=== PATIENT | female | born 1955 | race Caucasian/White ===

== ENCOUNTER 2017-02-21 20:24 | Observation (INO) | payer OTHER ==
[~2017-02-21] VITALS: Ht 165.1 cm; Wt 65.9 kg
[~2017-02-21 20:24] MED LIST: ASPI325T4 PO; ATOR40TA PO; CIPR500T PO; DIAZEPAM10 MG PO; LOSA100T6 PO; METR500T4 PO; POLY17PO5 PO; PROP225T PO; TRAM50TA PO; [UNRECOGNIZED DRUG - OTHER] PO
[2017-02-21 20:55] LABS: BASO % 1 % (0-3); EOS % 0 % (0-3); HEMATOCRIT 42.3 % (36.0-47.0); HEMOGLOBIN 14.5 g/dL (12.0-15.5); LYMPH # 1.7 x10^3/uL (1.0-4.8); LYMPH % 30 % (24-48); MEAN CORPUSCULAR HEMOGLOBIN 32 pg (25-35); MEAN CORPUSCULAR HGB CONC 34 g/dL (31-37); MEAN CORPUSCULAR VOLUME 94 fL (79-100); MONO % 9 % (0-9); NEUT % 61 % (31-73); PLATELET COUNT 228 x10^3/uL (140-400); RED BLOOD COUNT 4.52 x10^6/uL (3.50-5.40); RED CELL DISTRIBUTION WIDTH 14.4 % (11.5-14.5); WHITE BLOOD COUNT 5.7 x10^3/uL (4.0-11.0)
[2017-02-21] MEDS: NITROGLYCERIN SUBLINGUAL 0.4 MG BOTTLE OF 25. SL PRN ×3 (21:05→21:25)
[2017-02-21 21:12] LABS: CALCIUM 10.5 mg/dL (8.5-10.1); CREATININE 0.9 mg/dL (0.6-1.0); GFR 63.4; POTASSIUM 3.9 mmol/L (3.5-5.1)
[2017-02-21 21:18] LABS: ALBUMIN 4.1 g/dL (3.4-5.0); DIRECT BILIRUBIN 0.2 mg/dL (0.0-0.2)
[2017-02-21] MEDS: FENTANYL PF 100 MCG/2 ML VIAL. IV PRN ×3 (21:35→23:26)
[2017-02-21] MEDS ORDERED: diphenhydrAMINE HCL 25 MG CAPSULE PO ONE (22:00)
--- NOTE | 2017-02-21 22:43 | ACF ---
Admission Forms Criteria CARDIOLOGY GRG Clinical Indications for Admission to Inpatient Care ( Place 'X' for any and all applicable criteria): Hospital admission is needed for appropriate care of the patient because of ANY ONE of the following (1): [ ] I. Hemodynamic instability as indicated by ALL of the following (1)(2)(3) (4)(5) [ ]a) Vital signs or other findings not as expected for chronic patient condition or baseline [ ]b) Instability indicated by ANY ONE of the following: [ ]i) Hypotension [ ]ii) Symptomatic Tachycardia unresponsive to treatment ( e.g., analgesia, fluids, sedation as indicated) [ ]iii) Inadequate perfusion indicated by ANY ONE of the following: [ ] 1) Lactic acidosis (> 2 mmol/L) [ ] 2) New abnormal capillary refill (> 3 seconds) [ ] 3) Reduced urine output [ ] 4) New altered mental status [ ]iv) Orthostatic vital sign changes unresponsive to treatment (e.g., fluids) [ ]v) IV inotropic or vasopressor medication required to maintain adequate blood pressure or perfusion [ ] II. Severe heart failure as indicated by ANY ONE of the following(17)(18) [ ]a) Respiratory distress [ ]b) Hypotension [ ]c) Anasarca (refractory to outpatient therapy) [ ]d) Cardiac arrhythmias of immediate concern [ ]e) Myocardial ischemia [ ] III. Cardiac arrhythmias or findings of immediate concern indicated by ANY ONE of the following (19)(20): [ ] a) Heart rhythms that are inherently dangerous or unstable indicated by ANY ONE of the following (21)(22)(23): [ ] i) Resuscitated ventricular fibrillation or cardiac arrest [ ] ii) Ventricular escape rhythm [ ] iii) Sustained ventricular tachycardia (30 seconds or more of ventricular rhythm at greater than 100 beats per minute) [ ] iv) Nonsustained ventricular tachycardia and ANY ONE of the following: [ ] 1) Suspected cardiac ischemia as cause or consequence of ventricular tachycardia [ ] 2) In setting of acute myocarditis [ ] b) Unstable cardiac conduction defects indicated by ANY ONE of the following(23)(24)(25) [ ] i) Type II second-degree atrioventricular block [ ]ii) Third-degree atrioventricular block [ ]iii) New-onset left bundle branch block with suspected myocardial ischemia [ ]c) Any heart rhythm and ANY ONE of the following (21)(22)(26)(27) (28) [ ] i) Continuous long-term ECG monitoring needed (e.g., initiation of drug requiring monitoring for more than 24 hours) [ ] ii) Patient has automatic implanted cardioverter defibrillator that is repeatedly firing, malfunctioning, or in need of immediate adjustment of settings beyond the scope of ambulatory or observation care [ ]d) Heart rhythms of concern due to ANY ONE of the following: [ ] i) Hypotension [ ] ii) Respiratory distress [ ] iii) Association with other significant symptoms (e.g., bradycardia with syncope or ongoing dizziness, supraventricular tachycardia with chest pain (14)(15)(17) [ ] IV. Monitoring for cardiac contusion beyond the scope of observation care needed [A](30)(31)(32) [ ] V. Surgical or device complication (e.g., valve replacement complication , pacemaker dysfunction) (35)(41)(44)(45)(46) [ ] . Inpatient palliative care needed. [B](49) Also use Inpatient Palliative Care Criteria [ ] VII. Nonbacterial thrombotic (marantic) endocarditis (36)(43)(47)(48) [X] VIII. Cardiology condition, symptom, or finding for which emergency and observation care has failed or are not considered appropriate. [ ] IX. Acute valvular disease requiring inpatient as indicated by ANY ONE of the following (41) [ ]a) Acute valvular regurgitation (42) [ ]b) Noninfectious valvulitis (43) [ ]c) Obstructive valve thrombosis [ ]d) Paravalvular leak [ ]e) Other significant valvular disorder remaining after emergency or observation level of care (as appropriate) [ ]X. Pericardial disease requiring inpatient treatment as indicated by ANY ONE of the following (33)(34)(35)(36)(37) [ ]a) Suspected tamponade (38)(39)(40) [ ]b) Hemopericardium [ ]c) Other significant pericardial disorder remaining after emergency or observation level of care (as appropriate) [ ] XI. Cardiac ischemia beyond scope of emergency and observation care. [ ] XII. Hypertension requiring inpatient treatment as indicated by ANY ONE of the following (6)(7)(8) [ ]a) SBP greater than 220 mm Hg or DBP greater than 120 mmHg despite treatment [ ]b) SBP greater than 140 mm Hg or DBP greater than 100 mm Hg with evidence of acute end organ damage as indicated by ANY ONE of the following [ ] i) Encephalopathy [ ] ii) Acute renal failure as indicated by new onset of ANY ONE of the following (9)(10)(11)(12)(13) [ ]1) 3-fold rise in serum creatinine from baseline [ ]2) Serum creatinine greater than 4 mg/dL ( 354 micromoles/L) with acute rise greater than 0.5 mg/dL (44.2 micromoles/L) [ ]3) Reduction of more than 75% in estimated glomerular filtration rate from baseline [ ]4) Estimated glomerular filtration rate less than 35 mL/min/1.73m2 (0.59 mL/sec/1.73m2) in child up to 18 years of age [ ]5) Cessation of urine output indicated by ALL of the following [ ]A. Adequate volume status [ ]B. Inadequate urine output as indicated by ANY ONE of the following [ ]a. Urine output less than 0.3 mL/kg/hr for 24 hours [ ]b. Anuria (urine output less than 0.1 mL/kg/hr) for 12 hours [ ] iii) Aortic dissection [ ] iv) Myocardial Ischemia [ ] v) Left ventricular heart failure [ ]vi) Retinal Hemorrhage [ ]vii) Other significant finding [ ]c) Hypertension in child requiring inpatient treatment as indicated by ALL of the following(14)(15)(16) [ ] i) Outpatient treatment not effective, not available, or not appropriate [ ]ii) SBP or DBP greater than 95th percentile for age [ ]iii) Evidence of acute end organ damage as indicated by ANY ONE of the following [ ]1) Altered mental status [ ]2) Acute renal failure as indicated by new onset of ANY ONE of the following(9)(10)(11)(12)(13) [ ]A. 3-fold rise in serum creatinine from baseline [ ]B. Serum creatinine greater than 4 mg/dL (354 micromoles/L) with acute rise greater than 0.5 mg/dL (44.2 micromoles/L) [ ]C. Reduction of more than 75% in estimated glomerular filtration rate from baseline [ ]D. Estimated glomerular filtration rate less than 35 mL/min/1.73m2 (0.59 mL/sec/1.73m2) in child up to 18 years of age [ ]E. Cessation of urine output indicated by ALL of the following [ ]a. Adequate volume status [ ]b. Inadequate urine output as indicated by ANY ONE of the following [ ]i) Urine output less than 0.3 mL/kg/hr for 24 hours [ ]ii) Anuria ( urine output less than 0.1 mL/kg/hr) for 12 hours [ ]3) Severe headache [ ]4) Visual disturbance [ ]5) Retinal hemorrhage [ ]6) Other significant finding [ ]XIII. Complications of transplanted heart indicated by ANY ONE of the following(61): [ ]a) Acute graft rejection requiring inpatient management (eg, intravenous immunosuppression)(62)(63) [ ]b) Acute graft heart failure indicated by ANY ONE of the following(64): [ ]i) Hemodynamic instability [ ]ii) Cardiac arrhythmias of immediate concern [ ]iii) Pulmonary edema that is very severe (eg, mechanical ventilation needed, imminent or likely, need for 100% oxygen to keep oxygen saturation above 90%) [ ]iv) Pulmonary edema that is persistent as indicated by ALL of the following: [ ]1) New need for oxygen therapy to keep oxygen saturation above 90% (or increased FiO2 need from baseline) [ ]2) Has not improved sufficiently with emergency department or observation care IV diuretics or other heart failure treatments[E] [ ]v) Altered mental status that is severe or persistent [ ]vi) Increased creatinine (new on laboratory test) with reduction of more than 50% in estimated glomerular filtration rate from baseline [ ]vii) Progressively (ongoing) rising creatinine (known from past laboratory test) with reduction of more than 25% in estimated glomerular filtration rate from baseline [ ]viii) Acute renal failure [ ]ix) Acute peripheral ischemia (eg, examination shows pulseless, cool, mottled, or cyanotic extremity) [ ]x) Pulmonary artery catheter monitoring needed [ ]xi) Other sign or symptom of heart failure requiring inpatient treatment (ie, too severe or not responsive to outpatient and observation care treatment) [ ]c) Infection requiring inpatient management (eg, Hemodynamic instability, need for intravenous antimicrobial treatment)(66)(67)(68)(69)(70) [ ]d) Cardiac allograft vasculopathy requiring inpatient management ( eg evidence of cardiac ischemia)(71) [ ]e) Other complication of transplanted heart (eg, stroke, severe pulmonary hypertension, severe valvular dysfunction) requiring inpatient management(72) The original [facility] content created by [facility] has been revised. The portions of the content which have been revised are identified through the use of italic text or in bold, and [facility] has neither reviewed nor approved the modified material. All other unmodified content is copyright [facility]. Please see references footnoted in the original [facility] edition 2016 Admission Criteria Met?: Yes JIM MOHAN. Feb 21, 2017 22:43
[2017-02-21] MEDS ORDERED: ONDANSETRON PF 4 MG/2 ML VIAL. IV PRN (23:00)
[2017-02-21 23:30] VITALS: BP 135/76
[2017-02-22] MEDS: PROPAFENONE SR 225 MG CAP.ER.12H. PO SCH ×3 (00:10→13:11)
[2017-02-22] MEDS: DIAZEPAM 5 MG TABLET PO PRN ×2 (00:10→13:12)
[2017-02-22] MEDS: FENTANYL PF 100 MCG/2 ML VIAL. IV PRN ×3 (01:13→09:44)
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
[2017-02-22 03:20] VITALS: BP 140/78
[2017-02-22] MEDS ORDERED: LIDOCAINE 1% PF 2 ML VIAL. ONE (04:00)
[2017-02-22] MEDS ORDERED: LIDOCAINE 1% PF 2 ML VIAL. INJ ONE (04:30)
[2017-02-22 04:40] LABS: BASO % 0 % (0-3); EOS % 0 % (0-3); HEMATOCRIT 37.5 % (36.0-47.0); HEMOGLOBIN 12.7 g/dL (12.0-15.5); LYMPH # 2.6 x10^3/uL (1.0-4.8); LYMPH % 37 % (24-48); MEAN CORPUSCULAR HEMOGLOBIN 32 pg (25-35); MEAN CORPUSCULAR HGB CONC 34 g/dL (31-37); MEAN CORPUSCULAR VOLUME 93 fL (79-100); MONO % 8 % (0-9); NEUT % 55 % (31-73); PLATELET COUNT 192 x10^3/uL (140-400); RED BLOOD COUNT 4.01 x10^6/uL (3.50-5.40); RED CELL DISTRIBUTION WIDTH 14.1 % (11.5-14.5); WHITE BLOOD COUNT 6.9 x10^3/uL (4.0-11.0)
[2017-02-22 04:50] LABS: CALCIUM 9.4 mg/dL (8.5-10.1); CREATININE 0.9 mg/dL (0.6-1.0); GFR 63.4; POTASSIUM 4.1 mmol/L (3.5-5.1)
--- NOTE | 2017-02-22 06:34 | EKG ---
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
[2017-02-22 07:00] VITALS: BP 126/60
--- NOTE | 2017-02-22 07:21 | RAD ---
Exam: AP portable chest. History: Chest pain. Symptoms began today. Comparison: 06/22/2016. Findings: The heart and mediastinal structures are within normal limits for size. Lungs are without infiltrate. No pneumothorax or pleural effusion is appreciated. Pacemaker by left subclavian approach is unchanged. Aortic atherosclerosis is seen. Impression: 1. No acute cardiopulmonary process.
[2017-02-22] MEDS ORDERED: PROPAFENONE HCL 225 MG PO SCH (09:00)
[2017-02-22 11:00] VITALS: BP 134/70
[2017-02-22] MEDS ORDERED: REGADENOSON 0.4 MG/5 ML DISP.SYRIN. IV ONE (11:00)
[2017-02-22] MEDS ORDERED: TRAMADOL 50 MG TABLET. PO PRN ×2 (11:15)
[2017-02-22] MEDS ORDERED: POLYETHYLENE GLYCOL 3350 17 GM PACKET. PO PRN (11:15)
[2017-02-22] MEDS ORDERED: LOSARTAN POTASSIUM 50 MG TABLET. PO SCH (12:00)
[2017-02-22] MEDS ORDERED: PANTOPRAZOLE 40 MG TABLET.DR. PO SCH (12:00)
--- NOTE | 2017-02-22 12:24 | HP ---
ADMIT DATE: 02/22/2017 CHIEF COMPLAINT: Back and chest pain. HISTORY OF PRESENT ILLNESS AND HOSPITAL COURSE: This patient is a 62-year-old female who comes in complaining of multiple pain complaints, initially started in her left back, between her shoulder blades, radiating towards her chest. She also has right lower quadrant abdominal pain. She states that pain has been going on for 3 weeks, off and on. The patient's initial troponins were negative. The patient's EKG shows normal sinus rhythm without acute changes. Due to severity of symptoms, she was admitted for Cardiology evaluation and rule out protocol. PAST MEDICAL HISTORY: Significant for: 1. Hypertension. 2. High cholesterol. 3. Reflux disease. 4. Chronic back pain. 5. History of diverticulitis. 6. Chronic anxiety. 7. History of breast cancer, in remission since 1997. 8. Posttraumatic stress disorder. 9. Lumbar compression fracture. PAST SURGICAL HISTORY: Significant for: 1. Cholecystectomy. 2. Bilateral mastectomy with reconstruction. 3. Skin grafting of . 4. Left lower extremity fracture repair. 5. Heart catheterization. 6. Total abdominal hysterectomy with bilateral oophorectomy. 7. Kyphoplasty. 8. [place] dual chamber pacemaker in place since 2010. FAMILY HISTORY: Mother is with hypertension, heart disease as well as diabetes. Father is , and several family members with heart disease noted. SOCIAL HISTORY: The patient continues to smoke, approximately a half to a full pack per day. She does not use alcohol. She is on disability. ALLERGIES: The patient exhibits allergies to MORPHINE, DEMEROL, CODEINE as well as HYDROCODONE. REVIEW OF SYSTEMS: The patient has been having intermittent abdominal pain, but denies any weight loss, nausea, vomiting, diarrhea, dysuria, night sweats. The patient denies any shortness of breath or diaphoresis. PHYSICAL EXAMINATION: GENERAL: This is a well-nourished, well-developed female in no apparent distress. On my exam, she is alert and oriented x 3. HEENT: Benign. NECK: Supple, without JVD or bruit. CARDIAC: Regular rate and rhythm. LUNGS: Clear. ABDOMEN: Soft. She does have some mild tenderness in the right lower quadrant, but has no rebound, no guarding and positive bowel sounds are noted. EXTREMITIES: 2+ pulses without edema. ASSESSMENT: Atypical chest pain with strong family history of heart disease with risk factors of high cholesterol, hypertension, and tobacco abuse. PLAN: To proceed with stress testing and Cardiology consultation and discharge to home if negative. To follow up with Dr. Phan for continued care. TOMMY DE LEÓN MD DR: AKOSUA/vidal JOB#: [id number] / [id number]
[2017-02-22 15:00] VITALS: BP 123/63
--- NOTE | 2017-02-22 15:02 | PDOC2 ---
CONSULT Date of Consult Date of Consult DATE: 02/22/17 TIME: 14:53 Reason for Consult Reason for Consult: Chest pain; pacemaker present Referring Physician Referring Physician: Dr. Lehman Identification/Chief Complaint Chief Complaint Chest pain Source Source: Patient History of Present Illness Reason for Visit: Ms. Parks is a 62 year old female with PMHx of breast cancer, sick sinus syndrome s/p pacemaker placement presented to the ED yesterday evening with thoracic back pain and chest pain. Pt reported that she was taking a nap when the pain in her back woke her up. The pain radiates from her back to her chest. Pt reported SOB/N/weakness in her legs. Pt denies diaphoresis/cough/fever/chills /vomiting/diarrhea/abdominal pain. Pt reported taking tyelenol at home but had no relief. Past Medical History Cardiovascular: CAD, HTN, Hyperlipidemia Pulmonary: COPD GI: Diverticulosis, GERD Musculoskeletal: low back pain (chronic) Past Surgical History Past Surgical History: Pacemaker, Appendectomy, Cholecystectomy, Mastectomy, Hysterectomy Family History Family History: Depression Current Problem List Problem List Problems Medical Problems: (1) Back pain Status: Acute (2) Chest pain Status: Acute Current Medications Current Medications Current Medications Nitroglycerin (Nitrostat) 0.4 mg PRN Q5MIN PRN SL CP RATING > 1/10 Last administered on 02/21/17 21:25; Start 02/21/17 at 20:45; Stop 02/22/17 at 20:44 Fentanyl Citrate (Fentanyl 2ml Vial) 25 mcg PRN Q15MIN PRN IV PAIN GREATER THAN 3/10 Last administered on 02/21/17 23:26; Start 02/21/17 at 21:30; Stop at 21:29 Diphenhydramine HCl (Benadryl) 25 mg 1X ONCE PO Last administered on 21:34; Start 02/21/17 at 22:00; Stop 02/21/17 at 22:01; Status DC Ondansetron HCl (Zofran) 4 mg PRN Q8HRS PRN IV NAUSEA/VOMITING; Start 02/21/17 at 23:00; Stop 02/22/17 at 22:59 Fentanyl Citrate (Fentanyl 2ml Vial) 50 mcg PRN Q2HR PRN IV SEVERE PAIN Last administered on 02/22/17 09:44; Start 02/21/17 at 23:00; Stop 02/22/17 at 22:59 Diazepam (Valium) 10 mg PRN TID PRN PO ANXIETY Last administered on 02/22/17 13:12; Start 02/21/17 at 23:45 Non-Formulary Medication 225 mg BID PO ; Start 02/22/17 at 09:00; Stop 02/22/17 at 09:00; Status DC Propafenone HCl (Rythmol Sr) 225 mg Q12HR PO Last administered on 02/22/17 13: 11; Start 02/22/17 at 00:15 Lidocaine HCl (Xylocaine-Mpf 1% Vial) 2 ml 1X ONCE INJ ; Start 02/22/17 at 04: 30; Stop 02/22/17 at 04:31; Status DC Lidocaine HCl (Xylocaine-Mpf 1% Vial) 2 ml STK-MED ONCE .ROUTE ; Start 02/22/17 at 04:00; Stop 02/22/17 at 09:07; Status DC Regadenoson (Lexiscan) 0.4 mg 1X ONCE IV Last administered on 02/22/17 12:32 ; Start 02/22/17 at 11:00; Stop 02/22/17 at 11:01; Status DC Atorvastatin Calcium (Lipitor) 40 mg QHS PO ; Start 02/22/17 at 21:00 Polyethylene Glycol (miraLAX PACKET) 17 gm PRN BID PRN PO CONSTIPATION; Start 02/22/17 at 11:15 Tramadol HCl (Ultram) 50 mg PRN Q6HRS PRN PO PAIN; Start 02/22/17 at 11:15; Status UNV Tramadol HCl (Ultram) 50 mg PRN Q4HRS PRN PO PAIN; Start 02/22/17 at 11:15 Losartan Potassium (Cozaar) 100 mg DAILY PO Last administered on 02/22/17 13: 11; Start 02/22/17 at 12:00 Pantoprazole Sodium (Protonix) 40 mg DAILYAC PO Last administered on 02/22/17 13:12; Start 02/22/17 at 12:00 Active Scripts Active Tramadol Hcl 50 Mg Tablet 1 Tab PO PRN Q6HRS PRN Tramadol Hcl 50 Mg Tablet 50 Mg PO Q4H PRN Miralax (Polyethylene Glycol 3350) 17 Gm Powd.pack 1 Packet PO BID PRN Metronidazole 500 Mg Tablet 1 Tab PO TID Reported [Lonsoprazole] 30 Mg PO DAILY Lipitor (Atorvastatin Calcium) 40 Mg Tablet Mg PO DAILY Diazepam 10 Mg Tablet 10 Mg PO TID PRN Losartan Potassium 100 Mg Tablet Mg PO DAILY Rythmol (Propafenone Hcl) 225 Mg Tablet 225 Mg PO BID Allergies Allergies: Coded Allergies: codeine (Unverified Allergy, Intermediate, 02/21/17) hydrocodone (Unverified Allergy, Intermediate, 02/21/17) acetaminophen (Verified Allergy, Mild, aggitation/hyperactivity, 07/17/14) hydrocodone bitartrate (Verified Allergy, Mild, aggitation/hyperactivity, 07/17/14) meperidine HCl (Verified Allergy, Mild, aggitation/hyperactivity, 07/17/14) morphine (Verified Allergy, Mild, aggitation/hyperactive, 07/17/14) ROS General: No: Appetite, Chills, Fatigue, Malaise, Night Sweats, Other Eyes: No Blurry vision, No Decreased vision, No Double vision, No Dry eyes, No Excessive tearing, No Eye Pain, No Itchy Eyes, No Loss of vision, No Other, No Photophobia, No Scotomata, No Uses contacts, No Uses glasses HEENT: No: Epistaxis, Heacaches, Hearing change, Nasal congestion, Nasal discharge, Oral lesions, Other, Sinus pain, Sneezing, Snoring, Sore Throat, Tinnitus, Vertigo, Visual Changes, Vocal changes Respiratory: YES: Shortness of breath, No: Cough, Hemoptysis, Orthopnea, Other, Pleuritic Pain, SOB with excertion, Sputum Changes, Stridor, Tachypnea, Wheezing Cardiovascular: yes Chest Pain, No Edema, No Lt Headedness, No Orthopnea, No Other, No Palpitations, No Paroxysmal Noc. Dyspnea Gastrointestinal: Yes Nausea, No Abdominal Pain, No Constipation, No Diarrhea, No Hematochezia, No Melena, No Other, No Vomiting Musculoskeletal: Yes Pain In: (thoracic back pain) Neurological: No Behavorial Changes, No Bowel/Bladder ControlChng, No Confusion , No Dizziness, No Gait Disturbance, No Headaches, No Impaired Coord/balance, No Memory Loss, No Numbness/Tingling, No Other, No Seizures, No Speech Problems , No Tremors, No Visual Changes, No Weakness Physical Exam General: Alert, Oriented X3, Cooperative, No acute distress, Other (pacemaker present) HEENT: Atraumatic, PERRLA Lungs: Clear to auscultation, Normal air movement Heart: Regular rate, Normal S1 Abdomen: Normal bowel sounds, Soft, No tenderness Extremities: No clubbing, No edema Skin: No rashes, No significant lesion Psych/Mental Status: Mental status NL, Mood NL Vitals VITALS Vital Signs Date Time Temp Pulse Resp B/P Pulse Ox O2 Delivery O2 Flow Rate FiO2 02/22/17 13:11 70 134/70 02/22/17 11:00 97.5 18 95 Room Air 97.5 Labs Labs Laboratory Tests Test 02/21/17 20:45 02/22/17 03:30 02/22/17 08:40 White Blood Count 5.7x10^3/uL (4.0-11.0) 6.9x10^3/uL (4.0-11.0) Red Blood Count 4.52x10^6/uL (3.50-5.40) 4.01x10^6/uL (3.50-5.40) Hemoglobin 14.5g/dL (12.0-15.5) 12.7g/dL (12.0-15.5) Hematocrit 42.3% (36.0-47.0) 37.5% (36.0-47.0) Mean Corpuscular Volume 94fL (79-100) 93fL (79-100) Mean Corpuscular Hemoglobin 32pg (25-35) 32pg (25-35) Mean Corpuscular Hemoglobin Concent 34g/dL (31-37) 34g/dL (31-37) Red Cell Distribution Width 14.4% (11.5-14.5) 14.1% (11.5-14.5) Platelet Count 228x10^3/uL (140-400) 192x10^3/uL (140-400) Neutrophils (%) (Auto) 61% (31-73) 55% (31-73) Lymphocytes (%) (Auto) 30% (24-48) 37% (24-48) Monocytes (%) (Auto) 9% (0-9) 8% (0-9) Eosinophils (%) (Auto) 0% (0-3) 0% (0-3) Basophils (%) (Auto) 1% (0-3) 0% (0-3) Neutrophils # (Auto) 3.4x10^3uL (1.8-7.7) 3.8x10^3uL (1.8-7.7) Lymphocytes # (Auto) 1.7x10^3/uL (1.0-4.8) 2.6x10^3/uL (1.0-4.8) Monocytes # (Auto) 0.5x10^3/uL (0.0-1.1) 0.5x10^3/uL (0.0-1.1) Eosinophils # (Auto) 0.0x10^3/uL (0.0-0.7) 0.0x10^3/uL (0.0-0.7) Basophils # (Auto) 0.0x10^3/uL (0.0-0.2) 0.0x10^3/uL (0.0-0.2) Sodium Level 142mmol/L (136-145) 140mmol/L (136-145) Potassium Level 3.9mmol/L (3.5-5.1) 4.1mmol/L (3.5-5.1) Chloride Level 105mmol/L (98-107) 106mmol/L (98-107) Carbon Dioxide Level 27mmol/L (21-32) 27mmol/L (21-32) Anion Gap 10 (6-14) 7 (6-14) Blood Urea Nitrogen 15mg/dL (7-20) 18mg/dL (7-20) Creatinine 0.9mg/dL (0.6-1.0) 0.9mg/dL (0.6-1.0) Estimated GFR (Cockcroft-Gault) 63.4 63.4 Glucose Level 103mg/dL (70-99) 121mg/dL (70-99) Calcium Level 10.5mg/dL (8.5-10.1) 9.4mg/dL (8.5-10.1) Total Bilirubin 1.0mg/dL (0.2-1.0) Direct Bilirubin 0.2mg/dL (0.0-0.2) Aspartate Amino Transf (AST/SGOT) 13U/L (15-37) Alanine Aminotransferase (ALT/SGPT) 19U/L (14-59) Alkaline Phosphatase 110U/L (46-116) Troponin I Quantitative < 0.017ng/mL (0.000-0.055) < 0.017ng/mL (0.000-0.055) < 0.017ng/mL (0.000-0.055) PW-Thq-F-Type Natriuretic Peptide 97pg/mL (0-124) Total Protein 8.0g/dL (6.4-8.2) Albumin 4.1g/dL (3.4-5.0) Lipase 206U/L (73-393) Laboratory Tests Test 02/21/17 20:45 02/22/17 03:30 02/22/17 08:40 White Blood Count 5.7x10^3/uL (4.0-11.0) 6.9x10^3/uL (4.0-11.0) Red Blood Count 4.52x10^6/uL (3.50-5.40) 4.01x10^6/uL (3.50-5.40) Hemoglobin 14.5g/dL (12.0-15.5) 12.7g/dL (12.0-15.5) Hematocrit 42.3% (36.0-47.0) 37.5% (36.0-47.0) Mean Corpuscular Volume 94fL (79-100) 93fL (79-100) Mean Corpuscular Hemoglobin 32pg (25-35) 32pg (25-35) Mean Corpuscular Hemoglobin Concent 34g/dL (31-37) 34g/dL (31-37) Red Cell Distribution Width 14.4% (11.5-14.5) 14.1% (11.5-14.5) Platelet Count 228x10^3/uL (140-400) 192x10^3/uL (140-400) Neutrophils (%) (Auto) 61% (31-73) 55% (31-73) Lymphocytes (%) (Auto) 30% (24-48) 37% (24-48) Monocytes (%) (Auto) 9% (0-9) 8% (0-9) Eosinophils (%) (Auto) 0% (0-3) 0% (0-3) Basophils (%) (Auto) 1% (0-3) 0% (0-3) Neutrophils # (Auto) 3.4x10^3uL (1.8-7.7) 3.8x10^3uL (1.8-7.7) Lymphocytes # (Auto) 1.7x10^3/uL (1.0-4.8) 2.6x10^3/uL (1.0-4.8) Monocytes # (Auto) 0.5x10^3/uL (0.0-1.1) 0.5x10^3/uL (0.0-1.1) Eosinophils # (Auto) 0.0x10^3/uL (0.0-0.7) 0.0x10^3/uL (0.0-0.7) Basophils # (Auto) 0.0x10^3/uL (0.0-0.2) 0.0x10^3/uL (0.0-0.2) Sodium Level 142mmol/L (136-145) 140mmol/L (136-145) Potassium Level 3.9mmol/L (3.5-5.1) 4.1mmol/L (3.5-5.1) Chloride Level 105mmol/L (98-107) 106mmol/L (98-107) Carbon Dioxide Level 27mmol/L (21-32) 27mmol/L (21-32) Anion Gap 10 (6-14) 7 (6-14) Blood Urea Nitrogen 15mg/dL (7-20) 18mg/dL (7-20) Creatinine 0.9mg/dL (0.6-1.0) 0.9mg/dL (0.6-1.0) Estimated GFR (Cockcroft-Gault) 63.4 63.4 Glucose Level 103mg/dL (70-99) 121mg/dL (70-99) Calcium Level 10.5mg/dL (8.5-10.1) 9.4mg/dL (8.5-10.1) Total Bilirubin 1.0mg/dL (0.2-1.0) Direct Bilirubin 0.2mg/dL (0.0-0.2) Aspartate Amino Transf (AST/SGOT) 13U/L (15-37) Alanine Aminotransferase (ALT/SGPT) 19U/L (14-59) Alkaline Phosphatase 110U/L (46-116) Troponin I Quantitative < 0.017ng/mL (0.000-0.055) < 0.017ng/mL (0.000-0.055) < 0.017ng/mL (0.000-0.055) EL-Yro-L-Type Natriuretic Peptide 97pg/mL (0-124) Total Protein 8.0g/dL (6.4-8.2) Albumin 4.1g/dL (3.4-5.0) Lipase 206U/L (73-393) Assessment/Plan Assessment/Plan Assessment: - Atypical chest pain, r/o ACS - Hypercalcemia - Hx of breast cancer - HTN Plan: - Atypical chest pain with strong family history of heart disease with risk factors of high cholesterol, hypertension, and tobacco abuse. - Last stress test evaluation and heart cath was around 2 years ago - EKG and CXR showed no acute abnormalities - Troponins x3 were negative - MPI performed this morning - Negative exam with normal LV function - At this time, will not recommend proceeding with a heart cath - Suggest a non-cardiac workup for this pain for potentially a malignancy cause with her history of breast cancer and hypercalcemia present. - Will continue to monitor while in the hospital Thank you for your consultation and allowing me the opportunity to participate in the care of this patient! MARIELA MCFARLAND MD Feb 22, 2017 15:02
--- NOTE | 2017-02-22 19:48 | RAD ---
APPROVED REPORT Test Type: Pharmacological Stress Nurse/Tech: GLORIA JOY Test Indications: BACK AND LEFT ARM PAIN Cardiac History: BRADYCARDIA, PACEMAKER, HTN, SEE EHR Medications: SEE EHR Medical History: SMOKER, SEIZURE, BREAST CA, SEE EHR Resting ECG: SR Resting Heart Rate: 70 bpm Resting Blood Pressure: 146/81mmHg Pretest Chest Pain: No chest pain Nurse/Tech Notes LUNG SOUNDS CLEAR, S1S2 WNL. Consent: The procedure was explained to the patient in lay terms. Informed consent was witnessed. Ricky eout was entered into [employer]. History and Stress Test performed by [facility] [employer]. Details Pharmacologic stress testing was performed using 0.4mg per 5ml of regadenoson given intravenously ove r 7-10 seconds. Stress Symptoms STOMACH CRAMPING ,HEADACHE. POST EXERCISE Reason for Termination: Infusion complete Max HR: 95 bpm Max Blood Pressure: 146/81mmHg Chest Pain: No. Arrhythmia: No. ST Change: No. Imaging Protocol IMAGE PROTOCOL: Rest Tc-99m/stress Tc-99m 1 day Rest: Stress: Viability: Radiopharm.Tc99m [id number] Sestamibi Dose13.3mCi 32.3mCi Duration 15min. 10min. Img Date 02/22/2017 02/22/2017 Inj-Img [id number]. 60min. Rest Admin Site:IV - Right HandAdministrator:TEJAL Lockett Stress Admin Site: IV - Right HandAdministrator: TEJAL Lockett STRESS DATA End Diast. Vol.73.0mlAv. Heart Rate72.0bpm End Syst. Vol.23.0mlCO Index BSA0.0L/min Myocardial Iojw483.0gEject. Ajjgvwwr41.0% Stress Rates Pk. Fill Rate2.73EDV/secLVtime Pk. Fill 200.57msec Pk. Empty Rate4.05ESV/secLVtime Pk. Ktvnr730.25msec 10/31 Pk. Fill1.22EDV/sec Stress Scores Regional WT0.00Summed WT0.00 Regional WM0.00Summed WM5.00 LV Perf. Quant 17 Seg. SSS3.00 17 Seg. SRS0.00 17 Seg. SDS3.00 Stress Defect Extent (% LAD)0.00Rest Defect Extent (% LAD)0.00Rev. Defect Extent (% LAD)0.00 Stress Defect Extent (% LCX) 10.00Rest Defect Extent (% LCX)0.00Rev. Defect Extent (% LCX)10.00 Stress Defect Extent (% RCA)0.00Rest Defect Extent (% RCA)0.00Rev. Defect Extent (% RCA)0.00 Stress Defect Extent (% WENDIE)2.60Rest Defect Extent (% WENDIE)0.00Rev. Defect Extent (% WENDIE)2.60 Conclusion 1. No electrocardiographic changes suggestive of myocardial ischemia with pharmacological stress. 2. Small area of perfusion defect in the lateral wall with stress but not with rest that could be du e to myocardial ischemia. 3. Normal wall motion and wall thickening with an ejection fraction of 68%. 4. Scan probably indicates low risk for future cardiac events.
[2017-02-22] MEDS ORDERED: ATORVASTATIN CALCIUM 40 MG TABLET. PO SCH (21:00)
== END 2017-02-22 16:30 | disposition home or self-care (01) ==
LOC: ER 20:24 → INTOOBSV 21:54 → 2 SOUTH 21:54
PROVIDERS: ADMIT Family Medicine; ATTEND Family Medicine
DX: R07.89 Other chest pain (principal); I10 Essential (primary) hypertension; E78.00 Pure hypercholesterolemia, unspecified; K21.9 Gastro-esophageal reflux disease without esophagitis; G89.29 Other chronic pain; F41.9 Anxiety disorder, unspecified; F43.10 Post-traumatic stress disorder, unspecified; F17.210 Nicotine dependence, cigarettes, uncomplicated; I49.5 Sick sinus syndrome; I25.10 Atherosclerotic heart disease of native coronary artery without angina pectoris; J44.9 Chronic obstructive pulmonary disease, unspecified; E78.5 Hyperlipidemia, unspecified; E83.52 Hypercalcemia; Z95.0 Presence of cardiac pacemaker; Z85.3 Personal history of malignant neoplasm of breast; Z90.13 Acquired absence of bilateral breasts and nipples; Z90.710 Acquired absence of both cervix and uterus; Z83.3 Family history of diabetes mellitus; Z81.8 Family history of other mental and behavioral disorders; Z82.49 Family history of ischemic heart disease and other diseases of the circulatory system
CPT/HCPCS: 36415; 71010; 78452; 80048; 80076; 83690; 83880; 84484; 85027; 93005; 93017; 96374; 96376; 99285; A9500; G0378; J2785; J3010; Q0163; 96375; G0379

== ENCOUNTER 2017-03-10 18:34 | Emergency (ER) | payer OTHER ==
[~2017-03-10] VITALS: Ht 165.1 cm; Wt 67.1 kg
[~2017-03-10 18:34] MED LIST changes: +POLY17PO29 PO; -POLY17PO5 PO
[2017-03-10 19:34] VITALS: BP 144/78
[2017-03-10] MEDS ORDERED: NAPROXEN 500 MG TABLET PO STA (19:47)
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
== END 2017-03-10 20:30 | disposition home or self-care (01) ==
LOC: ER 19:05
DX: S80.12XA Contusion of left lower leg, initial encounter (principal); Z95.0 Presence of cardiac pacemaker; F17.200 Nicotine dependence, unspecified, uncomplicated; Z90.49 Acquired absence of other specified parts of digestive tract; Z90.710 Acquired absence of both cervix and uterus; Z88.5 Allergy status to narcotic agent; Z88.6 Allergy status to analgesic agent; W01.0XXA Fall on same level from slipping, tripping and stumbling without subsequent striking against object, initial encounter; Y93.89 Activity, other specified; Y99.8 Other external cause status; Y92.89 Other specified places as the place of occurrence of the external cause
CPT/HCPCS: 73564; 99284

== ENCOUNTER 2017-04-22 23:32 | Emergency (ER) | payer OTHER ==
[~2017-04-22] VITALS: Ht 165.1 cm; Wt 63.5 kg
[~2017-04-22 23:32] MED LIST changes: -ASPI325T4 PO; +ASPI325T8 PO; -METR500T4 PO; +METR500T8 PO
[2017-04-22 23:57] LABS: BILIRUBIN,URINE NEGATIVE (NEG); GLUCOSE,URINE NEGATIVE (NEG); NITRITE,URINE NEGATIVE (NEG); PROTEIN,URINE NEGATIVE (NEG-TRACE); UROBILINOGEN,URINE 0.2 mg/dL (0.2 mg/dL)
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
[2017-04-23] MEDS ORDERED: diphenhydrAMINE HCL 25 MG CAPSULE PO ONE
[2017-04-23] MEDS ORDERED: fentaNYL PF VIAL 100 MCG/2 ML VIAL IV PRN
[2017-04-23 00:05] LABS: BACTERIA,URINE 0 /HPF (0-FEW); RBC,URINE 0 /HPF (0-2); SQUAMOUS EPITHELIAL CELL,UR FEW /LPF; WBC,URINE OCC /HPF (0-4)
--- NOTE | 2017-04-23 00:40 | RAD ---
EXAM: Abdomen and pelvis CT without intravenous contrast. HISTORY: Left flank pain for 2 days. TECHNIQUE: Computed tomographic images of the abdomen and pelvis were obtained without contrast. Multiplanar reformatting was performed. PQRS compliance statement: One or more of the following individualized dose reduction techniques were utilized for this examination: 1. Automated exposure control 2. Adjustment of the mA and/or kV according to patient size 3. Use of iterative reconstruction technique COMPARISON: April 03, 2013. FINDINGS: The lung bases demonstrate no acute finding. Partially visualized breast implants are seen bilaterally. Detailed evaluation of the intra-abdominal and pelvic organs and vascular structures is limited secondary to lack of IV contrast. Within these limitations, the liver, spleen, pancreas, adrenal glands and left kidney demonstrate no focal abnormality. The gallbladder is surgically absent. A round hypodensity is redemonstrated within the inferior lateral right kidney, seen on the previous CT exam. The GI tract demonstrates no dilated bowel loops to suggest obstruction. Appendix is normal in caliber. Distal colonic diverticular redemonstrated, with soft tissue stranding demonstrated about the distal descending colon in the region of diverticula present. A few tiny foci of air are seen along the posterior aspect of the descending colonic wall, may represent contained extraluminal air foci versus air within diverticula. No significant extraluminal free air is seen. No adjacent fluid collection is present to suggest abscess formation. Prominent sigmoid colon diverticula are redemonstrated, as seen on the previous exam. The urinary bladder is not distended and therefore not well evaluated. No intra-abdominal or pelvic free fluid, free air or significant lymphadenopathy is seen. Aorta is normal in caliber, with diffuse atherosclerotic calcification present. Overlying soft tissues and visualized osseous structures demonstrate no acute or suspicious interval change. Prior vertebral plasty at the L4 level redemonstrated. IMPRESSION: CT findings of acute diverticulitis involving the descending colon, as detailed above. No definite evidence of perforation or abscess formation seen. Electronically signed by: Ana Sue MD (04/23/2017 12:36 AM)
[2017-04-23 00:53] LABS: BASO # 0.1 x10^3/uL (0.0-0.2); BASO % 1 % (0-3); EOS % 1 % (0-3); HEMATOCRIT 38.7 % (36.0-47.0); HEMOGLOBIN 13.2 g/dL (12.0-15.5); LYMPH # 2.5 x10^3/uL (1.0-4.8); LYMPH % 35 % (24-48); MEAN CORPUSCULAR HEMOGLOBIN 32 pg (25-35); MEAN CORPUSCULAR HGB CONC 34 g/dL (31-37); MEAN CORPUSCULAR VOLUME 94 fL (79-100); MONO % 8 % (0-9); NEUT % 55 % (31-73); PLATELET COUNT 213 x10^3/uL (140-400); RED BLOOD COUNT 4.13 x10^6/uL (3.50-5.40); RED CELL DISTRIBUTION WIDTH 14.1 % (11.5-14.5); WHITE BLOOD COUNT 7.2 x10^3/uL (4.0-11.0)
[2017-04-23 01:05] LABS: CALCIUM 10.2 mg/dL (8.5-10.1); CREATININE 0.8 mg/dL (0.6-1.0); GFR 72.7; POTASSIUM 4.5 mmol/L (3.5-5.1)
[2017-04-23 01:09] LABS: ALBUMIN 3.6 g/dL (3.4-5.0); ALBUMIN/GLOBULIN RATIO 0.9 (1.0-1.7); TOTAL BILIRUBIN 0.7 mg/dL (0.2-1.0); TOTAL PROTEIN 7.4 g/dL (6.4-8.2)
[2017-04-23 01:30] VITALS: BP 185/85
[2017-04-23] MEDS ORDERED: METR500T PO (01:37)
[2017-04-23] MEDS ORDERED: TRAM50TA PO (01:37)
[2017-04-23] MEDS ORDERED: LEVO750T5 PO (01:37)
== END 2017-04-23 01:52 | disposition home or self-care (01) ==
LOC: ER 23:32
DX: K57.32 Diverticulitis of large intestine without perforation or abscess without bleeding (principal); Z90.49 Acquired absence of other specified parts of digestive tract; Z90.710 Acquired absence of both cervix and uterus; Z95.0 Presence of cardiac pacemaker; Z88.5 Allergy status to narcotic agent; Z88.6 Allergy status to analgesic agent
CPT/HCPCS: 36415; 74176; 80053; 81001; 83690; 85027; 96374; 99285; J3010; Q0163

== ENCOUNTER 2017-08-19 10:11 | Emergency (ER) | payer OTHER ==
[~2017-08-19] VITALS: Ht 165.1 cm; Wt 63.5 kg
[~2017-08-19 10:11] MED LIST changes: +LEVO750T5 PO; +METR500T PO
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
[2017-08-19 10:20] VITALS: BP 197/99
[2017-08-19] MEDS: LIDO:MAALOX:DONNATAL 1:1:1 15 ML SINGLE DOSE SWSW ONE ×2 (10:59→11:02)
[2017-08-19] MEDS ORDERED: LIDOCAINE 2% VISCOUS 15 ML SOLUTION. SWSW ONE (12:15)
== END 2017-08-19 12:41 | disposition home or self-care (01) ==
LOC: ER 10:11
DX: R09.89 Other specified symptoms and signs involving the circulatory and respiratory systems (principal); J02.9 Acute pharyngitis, unspecified; Z95.0 Presence of cardiac pacemaker; Z90.710 Acquired absence of both cervix and uterus; Z90.49 Acquired absence of other specified parts of digestive tract; Z88.5 Allergy status to narcotic agent; Z88.6 Allergy status to analgesic agent
CPT/HCPCS: 99284

== ENCOUNTER 2017-09-13 02:52 | Emergency (ER) | payer OTHER ==
[~2017-09-13] VITALS: Ht 165.1 cm; Wt 63.5 kg
[2017-09-13 03:04] VITALS: BP 196/92
[2017-09-13] MEDS ORDERED: BENZONATATE 100 MG CAPSULE. PO ONE (03:30)
[2017-09-13] MEDS ORDERED: AZITHROMYCIN 250 MG TABLET. PO ONE (03:30)
[2017-09-13] MEDS ORDERED: AZIT250T6 PO (03:33)
[2017-09-13] MEDS ORDERED: BENZ100C PO (03:33)
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
== END 2017-09-13 03:50 | disposition home or self-care (01) ==
LOC: ER 02:52
DX: J18.9 Pneumonia, unspecified organism (principal); Z72.0 Tobacco use; Z90.710 Acquired absence of both cervix and uterus; Z90.49 Acquired absence of other specified parts of digestive tract; Z95.0 Presence of cardiac pacemaker; Z88.5 Allergy status to narcotic agent; Z88.8 Allergy status to other drugs, medicaments and biological substances
CPT/HCPCS: 99283; Q0144

== ENCOUNTER 2017-10-15 21:48 | Emergency (ER) | payer OTHER ==
[~2017-10-15] VITALS: Ht 165.1 cm; Wt 65.3 kg
[~2017-10-15 21:48] MED LIST changes: +AZIT250T6 PO; +BENZ100C PO
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
[2017-10-15] MEDS ORDERED: ONDANSETRON PF 4 MG/2 ML VIAL. IV ONE (22:15)
[2017-10-15] MEDS ORDERED: fentaNYL PF VIAL 100 MCG/2 ML VIAL IV PRN (22:15)
[2017-10-15] MEDS ORDERED: IV NORMAL SALINE 1000ML BAG 1,000 ML IV SCH (22:15)
--- NOTE | 2017-10-15 22:57 | RAD ---
RS Compliance Statement: One or more of the following individualized dose reduction techniques were utilized for this examination: 1. Automated exposure control 2. Adjustment of the mA and/or kV according to patient size 3. Use of iterative reconstruction technique CT head without contrast 10/15/2017 10:20 PM INDICATION: Headache with hypertension. History of seizures COMPARISON: Head CT April 26, 2012 TECHNIQUE: Multiple axial CT images of the head were obtained from skull base through the vertex without intravenous contrast. FINDINGS: Head: Ventricles, sulci and basal cisterns are within normal limits. There is no hydrocephalus. Alejandra-white matter differentiation is normal. There is no acute intracranial hemorrhage. There is no mass, mass effect or midline shift. Posterior fossa is normal in appearance. Visualized portions of the orbits are normal. Paranasal sinuses are well aerated. Mastoid air cells are well aerated. Mild brachycephaly. Otherwise, scalp and calvaria are normal. IMPRESSION: No acute intracranial hemorrhage. Electronically signed by: Cari Powell MD (10/15/2017 10:53 PM) [facility]
[2017-10-15 23:08] LABS: BASO # 0.1 x10^3/uL (0.0-0.2); BASO % 1 % (0-3); EOS % 1 % (0-3); HEMATOCRIT 36.6 % (36.0-47.0); HEMOGLOBIN 12.7 g/dL (12.0-15.5); LYMPH % 40 % (24-48); MEAN CORPUSCULAR HEMOGLOBIN 33 pg (25-35); MEAN CORPUSCULAR HGB CONC 35 g/dL (31-37); MEAN CORPUSCULAR VOLUME 94 fL (79-100); MONO % 8 % (0-9); NEUT % 51 % (31-73); PLATELET COUNT 261 x10^3/uL (140-400); RED CELL DISTRIBUTION WIDTH 14.1 % (11.5-14.5); WHITE BLOOD COUNT 7.6 x10^3/uL (4.0-11.0)
[2017-10-15] MEDS ORDERED: cloNIDine HCL 0.1 MG TABLET PO ONE (23:15)
[2017-10-15 23:20] LABS: CALCIUM 9.2 mg/dL (8.5-10.1); CREATININE 1.1 mg/dL (0.6-1.0); GFR 50.3
[2017-10-15 23:26] LABS: ALBUMIN 3.7 g/dL (3.4-5.0); ALBUMIN/GLOBULIN RATIO 1.2 (1.0-1.7); TOTAL BILIRUBIN 0.7 mg/dL (0.2-1.0); TOTAL PROTEIN 6.9 g/dL (6.4-8.2)
[2017-10-15 23:30] VITALS: BP 183/89
[2017-10-15] MEDS ORDERED: diazePAM 5 MG TABLET PO ONE (23:30)
[2017-10-15 23:36] LABS: CREATINE KINASE 51 U/L (26-192)
[2017-10-15 23:39] LABS: CKMB MASS < 0.5 ng/mL (0.0-3.6)
[2017-10-15] MEDS ORDERED: fentaNYL PF VIAL 100 MCG/2 ML VIAL IV ONE (23:55)
[2017-10-15] MEDS ORDERED: traMADol 50 MG TABLET PO ONE (23:55)
--- NOTE | 2017-10-16 07:48 | EKG ---
[facility] [address] [place] [address] Test Date: 2017-10-15 Test Time: 22:58:47 Pat Name: SREE DUMONT Department: Room: Gender: F Director Security Management: : 1955 Requested By: BEL BANERJEE Order Number: [id number] Reading MD: Measurements Intervals [place] Rate: 80 P: 54 FL: 192 QRS: 34 QRSD: 76 T: 41 QT: 392 QTc: 455 Interpretive Statements SINUS RHYTHM QRS(T) CONTOUR ABNORMALITY CANNOT RULE OUT ANTEROSEPTAL MYOCARDIAL DAMAGE BORDERLINE ECG No previous ECG available for comparison
--- NOTE | 2017-10-16 08:21 | RAD ---
Indication: Elevated blood pressure. Time of exam 2251 hours. Comparison is made with prior chest from 02/21/2017. The heart size is stable. Cardiac pacemaker remains in place. The lungs are clear. No infiltrate is identified. No effusion or pneumothorax is seen. Impression: Stable chest. No acute feature is detected.
== END 2017-10-16 00:05 | disposition home or self-care (01) ==
LOC: ER 21:48
DX: R51 Headache (principal); I10 Essential (primary) hypertension; G89.4 Chronic pain syndrome; E78.00 Pure hypercholesterolemia, unspecified; Z95.0 Presence of cardiac pacemaker; F17.210 Nicotine dependence, cigarettes, uncomplicated; Z88.5 Allergy status to narcotic agent; Z88.8 Allergy status to other drugs, medicaments and biological substances; Z88.6 Allergy status to analgesic agent
CPT/HCPCS: 36415; 70450; 71010; 80053; 82553; 83880; 84484; 85025; 93005; 96361; 96374; 96375; 99285; J2405; J3010; J7030

== ENCOUNTER 2018-02-16 20:28 | Observation (INO) | payer OTHER ==
[2018-02-16 21:30] LABS: BILIRUBIN,URINE NEGATIVE (NEG); CLARITY,URINE CLEAR; COLOR,URINE YELLOW; GLUCOSE,URINE NEGATIVE (NEG); NITRITE,URINE NEGATIVE (NEG); PROTEIN,URINE NEGATIVE (NEG-TRACE); UROBILINOGEN,URINE 0.2 mg/dL (0.2 mg/dL)
[2018-02-16 21:41] LABS: BACTERIA,URINE MODERATE /HPF (0-FEW); RBC,URINE OCC /HPF (0-2); SQUAMOUS EPITHELIAL CELL,UR MOD /LPF; WBC,URINE OCC /HPF (0-4)
[2018-02-16 21:50] LABS: ADD MAN DIFF? NO
[2018-02-16 21:54] LABS: BASO % 0 % (0-3); EOS % 0 % (0-3); HEMATOCRIT 40.9 % (36.0-47.0); HEMOGLOBIN 14.3 g/dL (12.0-15.5); LYMPH % 31 % (24-48); MEAN CORPUSCULAR HEMOGLOBIN 32 pg (25-35); MEAN CORPUSCULAR HGB CONC 35 g/dL (31-37); MEAN CORPUSCULAR VOLUME 92 fL (79-100); MONO # 0.6 x10^3/uL (0.0-1.1); MONO % 9 % (0-9); NEUT # 3.9 x10^3uL (1.8-7.7); NEUT % 60 % (31-73); PLATELET COUNT 235 x10^3/uL (140-400); RED BLOOD COUNT 4.45 x10^6/uL (3.50-5.40); RED CELL DISTRIBUTION WIDTH 14.5 % (11.5-14.5); WHITE BLOOD COUNT 6.6 x10^3/uL (4.0-11.0)
[2018-02-16 22:00] LABS: INR 1.1 (0.8-1.1); PROTHROMBIN TIME PATIENT 13.3 SEC (11.7-14.0)
[2018-02-16 22:01] LABS: PARTIAL THROMBOPLASTIN TIME 50 SEC (24-38)
[2018-02-16 22:05] LABS: ANION GAP 10 (6-14); BLOOD UREA NITROGEN 17 mg/dL (7-20); BUN/CREATININE RATIO 19 (6-20); CALCIUM 10.2 mg/dL (8.5-10.1); CARBON DIOXIDE 25 mmol/L (21-32); CHLORIDE 106 mmol/L (98-107); CREATININE 0.9 mg/dL (0.6-1.0); GFR 63.2; GLUCOSE 123 mg/dL (70-99); POTASSIUM 3.7 mmol/L (3.5-5.1); SODIUM 141 mmol/L (136-145)
[2018-02-16] MEDS: IV NORMAL SALINE 500ML BAG 500 ML IV (22:11)
[2018-02-16 22:12] LABS: NT-PRO BNP 65 pg/mL (0-124)
[2018-02-16 22:13] LABS: TROPONINI < 0.017 ng/mL (0.000-0.055)
[2018-02-16 22:17] LABS: ALBUMIN 3.8 g/dL (3.4-5.0); ALK PHOS 111 U/L (46-116); ALT (SGPT) 19 U/L (14-59); AST (SGOT) 14 U/L (15-37); TOTAL BILIRUBIN 1.3 mg/dL (0.2-1.0); TOTAL PROTEIN 7.6 g/dL (6.4-8.2)
[2018-02-16] MEDS: fentaNYL PF VIAL 100 MCG/2 ML VIAL IV (22:41)
[2018-02-17] MEDS ORDERED: ONDANSETRON PF 4 MG/2 ML VIAL. IV
[2018-02-17] MEDS: PROPAFENONE SR 225 MG CAP.ER.12H. PO ×2 (01:52→08:42)
[2018-02-17] MEDS: diazePAM 5 MG TABLET PO ×2 (01:52→08:42)
[2018-02-17] MEDS: fentaNYL PF VIAL 100 MCG/2 ML VIAL IV ×2 (01:54→08:43)
[2018-02-17 05:28] LABS: ADD MAN DIFF? NO
[2018-02-17 05:47] LABS: BASO % 0 % (0-3); EOS % 0 % (0-3); HEMATOCRIT 36.7 % (36.0-47.0); HEMOGLOBIN 12.9 g/dL (12.0-15.5); LYMPH # 2.5 x10^3/uL (1.0-4.8); LYMPH % 39 % (24-48); MEAN CORPUSCULAR HEMOGLOBIN 33 pg (25-35); MEAN CORPUSCULAR HGB CONC 35 g/dL (31-37); MEAN CORPUSCULAR VOLUME 93 fL (79-100); MONO # 0.5 x10^3/uL (0.0-1.1); MONO % 8 % (0-9); NEUT # 3.3 x10^3uL (1.8-7.7); NEUT % 52 % (31-73); PLATELET COUNT 199 x10^3/uL (140-400); RED BLOOD COUNT 3.95 x10^6/uL (3.50-5.40); RED CELL DISTRIBUTION WIDTH 14.7 % (11.5-14.5); WHITE BLOOD COUNT 6.4 x10^3/uL (4.0-11.0)
[2018-02-17 05:57] LABS: ANION GAP 11 (6-14); BLOOD UREA NITROGEN 20 mg/dL (7-20); CALCIUM 9.2 mg/dL (8.5-10.1); CARBON DIOXIDE 25 mmol/L (21-32); CHLORIDE 107 mmol/L (98-107); CREATININE 0.8 mg/dL (0.6-1.0); GFR 72.4; GLUCOSE 129 mg/dL (70-99); POTASSIUM 3.9 mmol/L (3.5-5.1); SODIUM 143 mmol/L (136-145)
[2018-02-17 06:08] LABS: TROPONINI < 0.017 ng/mL (0.000-0.055)
[2018-02-17] MEDS ORDERED: traMADol 50 MG TABLET PO (09:45)
[2018-02-17] MEDS: ATORVASTATIN CALCIUM 20 MG TABLET PO (10:31)
[2018-02-17] MEDS: amLODIPine BESYLATE 5 MG TABLET PO (10:32)
[2018-02-17] MEDS: LOSARTAN POTASSIUM 50 MG TABLET. PO (10:32)
[2018-02-17] MEDS ORDERED: ATORVASTATIN CALCIUM 20 MG TABLET PO (21:00)
== END 2018-02-17 10:30 | disposition home or self-care (01) ==
LOC: ER 20:28 → 2 NORTH 23:00
DX: I49.3 Ventricular premature depolarization (principal); I10 Essential (primary) hypertension; E78.5 Hyperlipidemia, unspecified; K21.9 Gastro-esophageal reflux disease without esophagitis; G89.29 Other chronic pain; F41.1 Generalized anxiety disorder; F17.210 Nicotine dependence, cigarettes, uncomplicated; E78.00 Pure hypercholesterolemia, unspecified; Z82.49 Family history of ischemic heart disease and other diseases of the circulatory system; Z83.3 Family history of diabetes mellitus; Z85.3 Personal history of malignant neoplasm of breast; Z95.0 Presence of cardiac pacemaker
CPT/HCPCS: 36415; 71045; 80048; 80053; 81001; 83880; 84484; 85025; 85610; 85730; 87086; 93005; 96361; 96374; 96375; 96376; 99285; 99285-25; 99406; G0378; G0379; J2060; J3010; J7040

== ENCOUNTER 2018-02-26 19:06 | Inpatient (IN) | payer OTHER ==
[2018-02-26] MEDS: IOHEXOL 300 MG/ML 100ML VIAL. IV (19:45)
[2018-02-26] MEDS ORDERED: CONTRAST GIVEN MC (20:00)
[2018-02-26 20:02] LABS: ADD MAN DIFF? NO
[2018-02-26] MEDS: diphenhydrAMINE 50 MG/ML VIAL IVP (20:02)
[2018-02-26] MEDS: ONDANSETRON PF 4 MG/2 ML VIAL. IV (20:02)
[2018-02-26] MEDS: fentaNYL PF VIAL 100 MCG/2 ML VIAL IV ×2 (20:02→21:25)
[2018-02-26] MEDS: IV NORMAL SALINE 1000ML BAG 1,000 ML IV (20:03)
[2018-02-26 20:21] LABS: ANION GAP 13 (6-14); BLOOD UREA NITROGEN 16 mg/dL (7-20); BUN/CREATININE RATIO 16 (6-20); CALCIUM 10.2 mg/dL (8.5-10.1); CARBON DIOXIDE 24 mmol/L (21-32); CHLORIDE 104 mmol/L (98-107); GLUCOSE 102 mg/dL (70-99); POTASSIUM 4.2 mmol/L (3.5-5.1); SODIUM 141 mmol/L (136-145)
[2018-02-26 20:26] LABS: ALBUMIN 3.9 g/dL (3.4-5.0); ALK PHOS 113 U/L (46-116); ALT (SGPT) 16 U/L (14-59); AST (SGOT) 11 U/L (15-37); LIPASE 117 U/L (73-393); TOTAL BILIRUBIN 1.7 mg/dL (0.2-1.0); TOTAL PROTEIN 7.9 g/dL (6.4-8.2)
[2018-02-26 20:29] LABS: LACTIC ACID 0.8 mmol/L (0.4-2.0)
[2018-02-26 20:34] LABS: TROPONINI < 0.017 ng/mL (0.000-0.055)
[2018-02-26 20:49] LABS: BASO % 0 % (0-3); EOS % 0 % (0-3); HEMATOCRIT 39.7 % (36.0-47.0); LYMPH # 1.7 x10^3/uL (1.0-4.8); LYMPH % 18 % (24-48); MEAN CORPUSCULAR HEMOGLOBIN 33 pg (25-35); MEAN CORPUSCULAR HGB CONC 35 g/dL (31-37); MEAN CORPUSCULAR VOLUME 93 fL (79-100); MONO # 0.9 x10^3/uL (0.0-1.1); MONO % 9 % (0-9); NEUT # 6.9 x10^3uL (1.8-7.7); NEUT % 72 % (31-73); PLATELET COUNT 241 x10^3/uL (140-400); RED BLOOD COUNT 4.28 x10^6/uL (3.50-5.40); RED CELL DISTRIBUTION WIDTH 14.3 % (11.5-14.5); WHITE BLOOD COUNT 9.5 x10^3/uL (4.0-11.0)
[2018-02-26 21:02] LABS: BILIRUBIN,URINE NEGATIVE (NEG); CLARITY,URINE CLEAR; COLOR,URINE YELLOW; GLUCOSE,URINE NEGATIVE (NEG); NITRITE,URINE NEGATIVE (NEG); PROTEIN,URINE NEGATIVE (NEG-TRACE); UROBILINOGEN,URINE 0.2 mg/dL (0.2 mg/dL)
[2018-02-26 21:12] LABS: BACTERIA,URINE MOD /HPF (0-FEW); RBC,URINE OCC /HPF (0-2); SQUAMOUS EPITHELIAL CELL,UR FEW /LPF
[2018-02-26] MEDS ORDERED: ONDANSETRON PF 4 MG/2 ML VIAL. IV (22:30)
[2018-02-26] MEDS: MEROPENEM 500 MG in IV NORMAL SALINE 50ML 50 ML IV (22:45)
[2018-02-27] MEDS: fentaNYL PF VIAL 100 MCG/2 ML VIAL IV ×2 (00:43→04:50)
[2018-02-27] MEDS: ATORVASTATIN CALCIUM 20 MG TABLET PO (00:43)
[2018-02-27] MEDS: diazePAM 5 MG TABLET PO (00:43)
[2018-02-27] MEDS: PROPAFENONE SR 225 MG CAP.ER.12H. PO ×2 (00:44→09:00)
[2018-02-27] MEDS: MEROPENEM 500 MG in IV NORMAL SALINE 50ML 50 ML IV ×2 (05:51→12:19)
[2018-02-27] MEDS: amLODIPine BESYLATE 5 MG TABLET PO (09:00)
[2018-02-27] MEDS ORDERED: ERTAPENEM 1GM IVPB FOR OMNI 50 ML IV (09:00)
[2018-02-27] MEDS: LACTOBACILLUS RHAMNOSUS GG 1 CAPSULE. PO (09:24)
[2018-02-27] MEDS ORDERED: ATORVASTATIN CALCIUM 20 MG TABLET PO (21:00)
== END 2018-02-27 13:50 | disposition home or self-care (01) | DRG 392 ==
LOC: ER 19:06 → 4 NORTH 22:05
DX: K57.32 Diverticulitis of large intestine without perforation or abscess without bleeding (principal); I49.5 Sick sinus syndrome; E78.00 Pure hypercholesterolemia, unspecified; F17.210 Nicotine dependence, cigarettes, uncomplicated; I10 Essential (primary) hypertension; E78.5 Hyperlipidemia, unspecified; F41.1 Generalized anxiety disorder; F43.10 Post-traumatic stress disorder, unspecified; K21.9 Gastro-esophageal reflux disease without esophagitis; G89.29 Other chronic pain; M54.9 Dorsalgia, unspecified; K57.30 Diverticulosis of large intestine without perforation or abscess without bleeding; N83.209 Unspecified ovarian cyst, unspecified side; Z90.710 Acquired absence of both cervix and uterus; Z90.49 Acquired absence of other specified parts of digestive tract; Z85.3 Personal history of malignant neoplasm of breast; Z88.6 Allergy status to analgesic agent; Z88.5 Allergy status to narcotic agent; Z83.3 Family history of diabetes mellitus; Z82.49 Family history of ischemic heart disease and other diseases of the circulatory system; Z90.13 Acquired absence of bilateral breasts and nipples; Z95.0 Presence of cardiac pacemaker; Z88.1 Allergy status to other antibiotic agents
CPT/HCPCS: 36415; 74177; 80053; 81001; 83605; 83690; 84484; 85025; 93005; 96374; 96375; 96376; 99285; 99285-25; J1200; J2185; J2405; J3010; J7030; Q9967

== ENCOUNTER 2018-08-09 07:37 | Emergency (ER) | payer OTHER ==
[~2018-08-09] VITALS: Ht 160 cm; Wt 60.3 kg
[~2018-08-09 07:37] MED LIST changes: +AMLO5TAB7 PO; +AMOX1TAB61 PO; +ATOR20TA58 PO; +CIPR500T94 PO; +LACT1CAP19 PO; -LOSA100T6 PO; +LOSA100T7 PO; +OMEP40CA5 PO; +PROP150T2 PO
[2018-08-09] MEDS ORDERED: IV NORMAL SALINE 1000ML BAG 1,000 ML IV SCH (08:05)
[2018-08-09] MEDS ORDERED: PROCHLORPERAZINE 10 MG/2 ML VIAL. IV ONE (08:15)
[2018-08-09] MEDS ORDERED: fentaNYL PF VIAL 100 MCG/2 ML VIAL IV ONE (08:15)
[2018-08-09 08:24] LABS: BILIRUBIN,URINE NEGATIVE (NEG); CLARITY,URINE CLEAR; COLOR,URINE YELLOW; NITRITE,URINE NEGATIVE (NEG); PH,URINE 5.5; PROTEIN,URINE NEGATIVE (NEG-TRACE); UROBILINOGEN,URINE 0.2 mg/dL (0.2 mg/dL)
[2018-08-09 08:25] LABS: BASO % 0 % (0-3); EOS # 0.1 x10^3/uL (0.0-0.7); EOS % 1 % (0-3); HEMATOCRIT 38.6 % (36.0-47.0); HEMOGLOBIN 13.6 g/dL (12.0-15.5); LYMPH # 3.1 x10^3/uL (1.0-4.8); LYMPH % 31 % (24-48); MEAN CORPUSCULAR HEMOGLOBIN 33 pg (25-35); MEAN CORPUSCULAR HGB CONC 35 g/dL (31-37); MEAN CORPUSCULAR VOLUME 93 fL (79-100); MONO # 0.6 x10^3/uL (0.0-1.1); MONO % 6 % (0-9); NEUT % 61 % (31-73); PLATELET COUNT 280 x10^3/uL (140-400); RED BLOOD COUNT 4.14 x10^6/uL (3.50-5.40); RED CELL DISTRIBUTION WIDTH 13.7 % (11.5-14.5); WHITE BLOOD COUNT 9.9 x10^3/uL (4.0-11.0)
[2018-08-09] MEDS ORDERED: IOHEXOL 300 MG/ML 100ML VIAL. IV ONE (08:30)
[2018-08-09] MEDS ORDERED: CONTRAST GIVEN. MC PRN (08:30)
[2018-08-09 08:34] LABS: CALCIUM 10.6 mg/dL (8.5-10.1); CREATININE 0.9 mg/dL (0.6-1.0); GFR 63.2; POTASSIUM 3.8 mmol/L (3.5-5.1)
[2018-08-09 08:35] LABS: BACTERIA,URINE FEW /HPF (0-FEW); RBC,URINE RARE /HPF (0-2); SQUAMOUS EPITHELIAL CELL,UR FEW /LPF; WBC,URINE RARE /HPF (0-4)
[2018-08-09 08:39] LABS: ALBUMIN/GLOBULIN RATIO 1.2 (1.0-1.7); TOTAL BILIRUBIN 0.7 mg/dL (0.2-1.0); TOTAL PROTEIN 7.4 g/dL (6.4-8.2)
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
--- NOTE | 2018-08-09 09:23 | RAD ---
CT abdomen and pelvis with contrast History: Right lower quadrant pain, nausea Technique: After the administration of intravenous contrast, CT imaging was performed of the abdomen and pelvis. No oral contrast was given as per request. Multiplanar images are reviewed. Exposure: One or more of the following individualized dose reduction techniques were utilized for this examination: 1. Automated exposure control 2. Adjustment of the mA and/or kV according to patient size 3. Use of iterative reconstruction technique. Contrast: 75 cc Omnipaque 300 Comparison: February 26, 2018 Findings: Lead from electronic cardiac device is noted. There is no pleural fluid at the lung bases. There is no significant abnormality of the liver, spleen, pancreas, adrenal glands. Both kidneys enhance without hydronephrosis. There is a 2.6 cm cyst of the mid to inferior right kidney as seen previously, separate 0.8 cm cyst more medially unchanged. There has been cholecystectomy. Accurate evaluation of bowel is limited without oral contrast. Normal appendix is visualized. There is no free air or free fluid in. There is again diverticulosis greatest of the sigmoid colon at which there is likely associated wall thickening although poorly characterized, some adjacent subtle hazy change of the fat. Previously seen strandy change of the left paracolic gutter has decreased. Mild descending colonic wall thickening is is difficult to exclude although not well distended. Small bowel is not dilated. There has been vertebroplasty at L4. There is some scattered atherosclerotic calcification of the abdominal aorta. IMPRESSION: 1. There is no CT evidence of acute appendicitis. There is again diverticulosis greatest of the sigmoid colon at which there is probable associated wall thickening as may be seen with diverticulitis. Previously seen inflammatory change of the left paracolic gutter has decreased, difficult to exclude component of descending colonic wall thickening such as from colitis although may be due to nondistention. There is no free air or free fluid. 2. There are again right renal cysts. Electronically signed by: Justyn Pérez MD (08/09/2018 9:20 AM) [id number]
[2018-08-09] MEDS ORDERED: OXYC-323 PO (10:32)
[2018-08-09] MEDS ORDERED: CIPR500T94 PO (10:32)
[2018-08-09] MEDS ORDERED: METR500T PO (10:32)
[2018-08-09] MEDS ORDERED: ONDA4TAB7 PO (10:32)
[2018-08-09 10:39] VITALS: BP 127/64
== END 2018-08-09 10:49 | disposition home or self-care (01) ==
LOC: ER 07:37
DX: K57.32 Diverticulitis of large intestine without perforation or abscess without bleeding (principal); K21.9 Gastro-esophageal reflux disease without esophagitis; E78.00 Pure hypercholesterolemia, unspecified; I10 Essential (primary) hypertension; Z90.49 Acquired absence of other specified parts of digestive tract; Z90.710 Acquired absence of both cervix and uterus; Z95.0 Presence of cardiac pacemaker; F17.210 Nicotine dependence, cigarettes, uncomplicated; Z87.19 Personal history of other diseases of the digestive system; Z88.8 Allergy status to other drugs, medicaments and biological substances; Z88.5 Allergy status to narcotic agent; Z88.1 Allergy status to other antibiotic agents; Z88.6 Allergy status to analgesic agent
CPT/HCPCS: 36415; 74177; 80053; 81001; 83690; 85025; 87086; 96361; 96374; 96375; 99285; J0780; J3010; J7030; Q9967

== ENCOUNTER 2018-12-09 22:32 | Emergency (ER) | payer OTHER ==
[~2018-12-09 22:32] MED LIST changes: +AMLO5TAB10 PO; -AMLO5TAB7 PO; +LOSA100T14 PO; -LOSA100T7 PO; +METR-34 PO; -METR500T8 PO; +ONDA4TAB7 PO; +OXYC1TAB15 PO
[2018-12-09] MEDS ORDERED: HYDROcodone/APAP 5/325MG 1 TAB TABLET PO ONE (23:50)
[2018-12-09] MEDS ORDERED: HYDROcodone/APAP 5/325MG 1 TAB TABLET ONE ×3 (23:50→23:51)
[2018-12-10] MEDS ORDERED: HYDROcodone/APAP 5/325MG 1 TAB TABLET ONE (00:34)
[2018-12-10] MEDS ORDERED: HYDROcodone/APAP 5/325MG 1 TAB TABLET PO ONE (00:45)
--- NOTE | 2018-12-10 07:40 | RAD ---
Left ankle, 3 views, 12/10/2018: HISTORY: Pain, old injury. The bony structures are demineralized. There are old healed fractures of the distal fibular and tibial shafts. There is moderate degenerative change at the ankle joint. No acute fracture or dislocation is identified. There is mild subcutaneous edema. Left calcaneus, 2 views, 12/10/2018: There has been a triple arthrodesis involving the hindfoot with 2 large surgical screws and a surgical staple in place. No acute fracture or destructive bony lesion is seen. IMPRESSION: 1. Demineralization. 2. Previous hindfoot fusion and instrumentation. 3. Old healed distal fibular and tibial fractures. 4. Moderate degenerative change at the tibiotalar articulation. Electronically signed by: Kip Jensen MD (12/10/2018 7:38 AM) [facility]
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
== END 2018-12-10 01:22 | disposition home or self-care (01) ==
LOC: ER 22:32
DX: R60.0 Localized edema (principal); M25.572 Pain in left ankle and joints of left foot; Z87.81 Personal history of (healed) traumatic fracture; E78.00 Pure hypercholesterolemia, unspecified; K21.9 Gastro-esophageal reflux disease without esophagitis; I10 Essential (primary) hypertension; Z95.0 Presence of cardiac pacemaker; Z88.5 Allergy status to narcotic agent; Z88.1 Allergy status to other antibiotic agents; Z88.6 Allergy status to analgesic agent
CPT/HCPCS: 73610; 73650; 99283

== ENCOUNTER 2019-03-19 07:16 | Emergency (ER) | payer OTHER ==
[~2019-03-19] VITALS: Ht 162.6 cm; Wt 64.9 kg
[2019-03-19 07:48] LABS: BILIRUBIN,URINE NEGATIVE (NEG); CLARITY,URINE CLEAR; NITRITE,URINE NEGATIVE (NEG); PH,URINE 5.5; PROTEIN,URINE NEGATIVE (NEG-TRACE); UROBILINOGEN,URINE 0.2 mg/dL (0.2 mg/dL)
[2019-03-19] MEDS ORDERED: fentaNYL PF VIAL 100 MCG/2 ML VIAL IV ONE (08:00)
[2019-03-19] MEDS ORDERED: IV NORMAL SALINE 1000ML BAG 1,000 ML IV SCH (08:00)
[2019-03-19] MEDS ORDERED: ONDANSETRON PF 4 MG/2 ML VIAL. IV ONE (08:00)
[2019-03-19 08:01] LABS: BACTERIA,URINE FEW /HPF (0-FEW); COLOR,URINE COLORLESS; SQUAMOUS EPITHELIAL CELL,UR FEW /LPF
[2019-03-19 08:18] LABS: BASO # 0.1 x10^3/uL (0.0-0.2); BASO % 1 % (0-3); EOS # 0.1 x10^3/uL (0.0-0.7); EOS % 1 % (0-3); HEMATOCRIT 40.4 % (36.0-47.0); HEMOGLOBIN 13.5 g/dL (12.0-15.5); LYMPH % 27 % (24-48); MEAN CORPUSCULAR HEMOGLOBIN 32 pg (25-35); MEAN CORPUSCULAR HGB CONC 33 g/dL (31-37); MEAN CORPUSCULAR VOLUME 95 fL (79-100); MONO # 0.7 x10^3/uL (0.0-1.1); MONO % 7 % (0-9); NEUT # 7.4 x10^3uL (1.8-7.7); NEUT % 66 % (31-73); PLATELET COUNT 240 x10^3/uL (140-400); RED BLOOD COUNT 4.28 x10^6/uL (3.50-5.40); RED CELL DISTRIBUTION WIDTH 14.5 % (11.5-14.5); WHITE BLOOD COUNT 11.2 x10^3/uL (4.0-11.0)
--- NOTE | 2019-03-19 08:50 | RAD ---
CT of the abdomen and pelvis without contrast, 03/19/2019: HISTORY: Right lower quadrant pain and nausea Noncontrast scans were obtained utilizing the renal stone protocol. No intrarenal calculi are identified. The renal collecting system and ureters are not dilated. There is a 2.2 cm cyst in the lower pole the right kidney. No ureteral calculus is evident. The urinary bladder is unremarkable. A transvenous pacing device extends into the right ventricle. The unopacified liver is unremarkable. The gallbladder is surgically absent. No pancreatic abnormality is seen. The spleen is of normal size. Mild aortoiliac calcific plaquing is present without evidence of aneurysm. No abdominal or pelvic adenopathy is seen. The uterus is surgically absent. There are scattered colonic diverticula, most numerous in the sigmoid region. No paracolonic inflammatory process is seen. The bowel loops are not dilated. The appendix is visualized and shows no abnormality. There is a small hiatal hernia. No free fluid or free air is evident in the abdomen or pelvis. A small fat-containing umbilical hernia is present. There is a mild vertebral compression deformity at L4 with vertebroplasty change evident. IMPRESSION: 1. No urinary tract calculi are identified. 2. Colonic diverticulosis. 3. Additional miscellaneous chronic findings as described above. 4. No acute abdominal or pelvic abnormality is detected. PQRS Compliance Statement: One or more of the following individualized dose reduction techniques were utilized for this examination: 1. Automated exposure control 2. Adjustment of the mA and/or kV according to patient size 3. Use of iterative reconstruction technique Electronically signed by: Kip Jensen MD (03/19/2019 8:47 AM) [facility]
[2019-03-19] MEDS ORDERED: cefTRIAXone IV Push 1 GM VIAL. IVP ONE (09:00)
[2019-03-19 09:09] LABS: CALCIUM 9.5 mg/dL (8.5-10.1); CREATININE 0.8 mg/dL (0.6-1.0); GFR 72.2; POTASSIUM 3.6 mmol/L (3.5-5.1)
[2019-03-19 09:14] LABS: ALBUMIN 3.8 g/dL (3.4-5.0); ALBUMIN/GLOBULIN RATIO 1.2 (1.0-1.7); TOTAL BILIRUBIN 0.6 mg/dL (0.2-1.0); TOTAL PROTEIN 7.1 g/dL (6.4-8.2)
[2019-03-19 09:30] VITALS: BP 131/61
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
[2019-03-19] MEDS ORDERED: SULF1TAB24 PO (09:39)
[2019-03-19] MEDS ORDERED: TRAM-48 PO (09:39)
[2019-03-19] MEDS ORDERED: PHEN100T82 PO (09:39)
[2019-03-19] MEDS ORDERED: FLUC150T PO (09:42)
== END 2019-03-19 10:04 | disposition home or self-care (01) ==
LOC: ER 07:16
DX: N39.0 Urinary tract infection, site not specified (principal); R10.9 Unspecified abdominal pain; M48.56XA Collapsed vertebra, not elsewhere classified, lumbar region, initial encounter for fracture; Z71.6 Tobacco abuse counseling; K42.9 Umbilical hernia without obstruction or gangrene; R11.0 Nausea; K57.32 Diverticulitis of large intestine without perforation or abscess without bleeding; K21.9 Gastro-esophageal reflux disease without esophagitis; E78.00 Pure hypercholesterolemia, unspecified; I10 Essential (primary) hypertension; Z90.49 Acquired absence of other specified parts of digestive tract; Z90.710 Acquired absence of both cervix and uterus; Z95.0 Presence of cardiac pacemaker; Z88.5 Allergy status to narcotic agent; Z88.6 Allergy status to analgesic agent; Z88.8 Allergy status to other drugs, medicaments and biological substances
CPT/HCPCS: 36415; 74176; 80053; 81001; 83690; 85025; 87070; 87086; 87880; 96374; 96375; 99285; J0696; J2405; J3010; J7030; 87186

== ENCOUNTER 2019-04-19 18:58 | Emergency (ER) | payer MEDICAID, OTHER ==
[~2019-04-19] VITALS: Ht 162.6 cm; Wt 63.5 kg
[~2019-04-19 18:58] MED LIST changes: +FLUC150T PO; +PHEN100T82 PO; +SULF1TAB24 PO; +TRAM-48 PO
[2019-04-19 19:12] VITALS: BP 130/85
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
--- NOTE | 2019-04-20 08:58 | EKG ---
[facility] [address] [place] [address] Test Date: 2019-04-19 Test Time: 20:11:29 Pat Name: SREE DUMONT Department: Room: Gender: F [employer]: [id number] : 1955 Requested By: HCIP ASTUDILLO Order Number: [id number] Reading MD: Measurements Intervals [place] Rate: 70 P: 51 WV: 214 QRS: 8 QRSD: 76 T: 20 QT: 388 QTc: 422 Interpretive Statements SINUS RHYTHM NO SPECIFIC ECG ABNORMALITIES RI6.01 No previous ECG available for comparison
== END 2019-04-19 20:25 | disposition home or self-care (01) ==
LOC: ER 18:58
DX: R00.2 Palpitations (principal); K21.9 Gastro-esophageal reflux disease without esophagitis; E78.00 Pure hypercholesterolemia, unspecified; I10 Essential (primary) hypertension; Z95.0 Presence of cardiac pacemaker; Z88.5 Allergy status to narcotic agent; Z88.6 Allergy status to analgesic agent
CPT/HCPCS: 93005; 99283

== ENCOUNTER 2019-07-27 19:09 | Emergency (ER) | payer MEDICAID ==
[~2019-07-27] VITALS: Ht 162.6 cm; Wt 63.5 kg
[~2019-07-27 19:09] MED LIST changes: +OMEP40CA45 PO; -OMEP40CA5 PO
[2019-07-27 19:30] VITALS: BP 135/72
== END 2019-07-27 20:00 | disposition left against medical advice (07) ==
LOC: ER 19:09
DX: H57.89 Other specified disorders of eye and adnexa (principal); Z53.21 Procedure and treatment not carried out due to patient leaving prior to being seen by health care provider

== ENCOUNTER → 2019-08-14 | Outpatient (CLI) | payer MEDICAID ==
[2019-07-27 19:30] VITALS: BP 135/72
--- NOTE | 2019-08-15 15:29 | RAD ---
MR#: [id number] Date of Study: 08/14/2019 Ordering Physician: HERNANDO CHA, Referring Physician: HERNANDO CHA, Tech: Elisha Borja RVT,NUVIA APPROVED REPORT Patient Location: OUT-PATIENT Laterality:Bilateral Risk Factors Hypertension: Smoking Doppler Spectral Velocity Analysis Right Left pCCA 79/17 cm/spCCA 90/34 cm/s mCCA 86/25 cm/smCCA 94/32 cm/s dCCA 63/19 cm/sdCCA 72/30 cm/s ECA 75/18 cm/sECA 81/18 cm/s pICA 73/22 cm/spICA 77/23 cm/s Connie 75/31 cm/smICA 116/39 cm/s dICA 97/39 cm/sdICA 101/36 cm/s Vert. 56/15 cm/sVert. 62/16 cm/s ICA/CCA 1.13ICA/CCA 1.29 Findings Bilateral nesbitt scale images of the common carotid, external and internal carotid vessels demonstrates mild plaque at the level of the bifurcations without any significant evidence of obstructive disease Spectral waveforms and color Doppler are within normal limits and overall suggestive of 0 to less doug n 50% stenosis by velocity criteria. Bilateral vertebral velocities are antegrade. Critical Notification Critical Value: No <Conclusion> No significant carotid occlusive disease bilaterally. Signed by : Hernando Cha, Electronically Approved : 08/15/2019 15:29:00
== END | disposition home or self-care (01) ==
LOC: US 15:24
PROVIDERS: ATTEND Internal Medicine Cardiovascular Disease
DX: I65.23 Occlusion and stenosis of bilateral carotid arteries (principal); I25.10 Atherosclerotic heart disease of native coronary artery without angina pectoris; E78.5 Hyperlipidemia, unspecified; I10 Essential (primary) hypertension; F17.200 Nicotine dependence, unspecified, uncomplicated
CPT/HCPCS: 93880

== ENCOUNTER 2020-03-04 17:37 | Emergency (ER) | payer MEDICAID ==
[~2020-03-04] VITALS: Ht 162.6 cm; Wt 65.9 kg
[2020-03-04] MEDS ORDERED: diazePAM 5 MG TABLET PO ONE (18:00)
[2020-03-04 18:18] VITALS: BP 113/58
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
--- NOTE | 2020-03-05 06:52 | EKG ---
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
== END 2020-03-04 18:45 | disposition home or self-care (01) ==
LOC: ER 17:37
DX: G89.29 Other chronic pain (principal); M54.2 Cervicalgia; M54.6 Pain in thoracic spine; F41.9 Anxiety disorder, unspecified; K21.9 Gastro-esophageal reflux disease without esophagitis; E78.00 Pure hypercholesterolemia, unspecified; I10 Essential (primary) hypertension; I48.91 Unspecified atrial fibrillation; F17.200 Nicotine dependence, unspecified, uncomplicated; I25.10 Atherosclerotic heart disease of native coronary artery without angina pectoris; Z95.0 Presence of cardiac pacemaker; Z90.710 Acquired absence of both cervix and uterus; Z90.49 Acquired absence of other specified parts of digestive tract; Z88.1 Allergy status to other antibiotic agents; Z88.5 Allergy status to narcotic agent; Z88.6 Allergy status to analgesic agent
CPT/HCPCS: 93005; 99283

== ENCOUNTER 2020-03-12 22:18 | Emergency (ER) | payer MEDICAID ==
[~2020-03-12] VITALS: Ht 162.6 cm; Wt 66.3 kg
[2020-03-12 22:37] VITALS: BP 128/75
[2020-03-12 23:09] LABS: BILIRUBIN,URINE NEGATIVE (NEG); COLOR,URINE YELLOW; NITRITE,URINE NEGATIVE (NEG); PROTEIN,URINE 100 mg/dL (NEG-TRACE); UROBILINOGEN,URINE 0.2 mg/dL (0.2 mg/dL)
[2020-03-12] MEDS ORDERED: KETOROLAC 60 MG/2 ML VIAL. IM ONE (23:15)
[2020-03-12 23:18] LABS: CLARITY,URINE HAZY
[2020-03-12 23:20] LABS: BACTERIA,URINE MANY /HPF (0-FEW); RBC,URINE 20-40 /HPF (0-2); SQUAMOUS EPITHELIAL CELL,UR FEW /LPF; WBC,URINE >40 /HPF (0-4)
[2020-03-12] MEDS ORDERED: SMZ/TMP 800/160MG TABLET. PO ONE (23:30)
[2020-03-12] MEDS ORDERED: PHENAZOPYRIDINE 200 MG TABLET. PO ONE (23:30)
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
[2020-03-12] MEDS ORDERED: CIPROFLOXACIN HCL 250 MG TABLET. PO ONE (23:45)
--- NOTE | 2020-03-12 23:48 | RAD ---
CT SCAN OF THE ABDOMEN AND PELVIS WITH IV CONTRAST. History: Right flank pain Comparison:None. Procedure: Contiguous axial images of the abdomen and pelvis were performed after the administration of 75 cc of Isovue 370 IV contrast. Oral contrast: No. Findings: There has been prior vertebroplasty at L4. There is prior cholecystectomy. The appendix is normal. There is a small hiatal hernia. Liver: Unremarkable Spleen: Unremarkable Pancreas: Unremarkable Adrenal Glands: Unremarkable Kidneys: A cyst arising laterally and posteriorly from the mid to lower right kidney is again seen. There is no mass or lymphadenopathy. There is no free air. There is no free fluid. The urinary bladder is collapsed and not well evaluated. There is moderate sigmoid diverticulosis without surrounding inflammation.. Impression: No acute findings. PQRS Compliance Statement: One or more of the following individualized dose reduction techniques were utilized for this examination: 1. Automated exposure control 2. Adjustment of the mA and/or kV according to patient size 3. Use of iterative reconstruction technique out Electronically signed by: Liam Rios III, MD (03/12/2020 11:45 PM) [id number]
[2020-03-12] MEDS ORDERED: DICL50TA4 PO (23:58)
[2020-03-12] MEDS ORDERED: TRAM50TA PO (23:58)
[2020-03-12] MEDS ORDERED: CIPR500T PO (23:58)
== END 2020-03-13 00:14 | disposition home or self-care (01) ==
LOC: ER 22:18
DX: N39.0 Urinary tract infection, site not specified (principal); R31.9 Hematuria, unspecified; I48.91 Unspecified atrial fibrillation; K21.9 Gastro-esophageal reflux disease without esophagitis; E78.00 Pure hypercholesterolemia, unspecified; I10 Essential (primary) hypertension; I25.10 Atherosclerotic heart disease of native coronary artery without angina pectoris; F17.200 Nicotine dependence, unspecified, uncomplicated; Z90.49 Acquired absence of other specified parts of digestive tract; Z90.710 Acquired absence of both cervix and uterus; Z95.0 Presence of cardiac pacemaker
CPT/HCPCS: 74176; 81001; 87086; 96372; 99285; J1885; 99283

== ENCOUNTER → 2020-04-22 | Outpatient (CLI) | payer MEDICARE, MEDICAID ==
[~2020-04-22] MED LIST changes: +DICL50TA4 PO
--- NOTE | 2020-04-22 14:29 | CARD ---
MR#: [id number] Date of Study: 04/22/2020 Ordering Physician: HERNANDO HARDY, Referring Physician: HERNANDO HARDY, Tech: Jyotsna Cortez [facility] APPROVED REPORT EXAM: Two-dimensional and M-mode echocardiogram with Doppler and color Doppler. Other Information Quality : Good INDICATION Sick Sinus Syndrome Surgery/Intervention Pacemaker: Date: 2010 2D DIMENSIONS Left Atrium(2D)3.1 (1.6-4.0cm)IVSd0.8 (0.7-1.1cm) Aortic Root(2D)2.7 (2.0-3.7cm)LVDd4.7 (3.9-5.9cm) LVOT Diameter1.9 (1.8-2.4cm)PWd0.9 (0.7-1.1cm) LVDs3.8 (2.5-4.0cm)FS (%) 25.0 % Aortic Valve AoV Peak Miguel.138.0cm/sAoV VTI27.0cm AO Peak GR.8.0mmHgLVOT VTI 23.00cm AO Mean GR.4mmHgAVA (VTI)2.30cm2 Tricuspid Valve TR P. [id number] [id number] TR Peak Gr.[id number] LEFT VENTRICLE The left ventricle is normal size. There is normal left ventricular wall thickness. Left ventricle sy stolic function is low normal. The Ejection Fraction is estimated at 50%. Apical motion consistent wi th pacemaker activation. Transmitral Doppler flow pattern is Grade I-abnormal relaxation pattern. RIGHT VENTRICLE The right ventricle is normal size. The right ventricular systolic function is normal. There is a pac emaker lead in the right ventricle. ATRIA The left atrium size is normal. The right atrium size is normal. A pacemaker is seen in the right atr ium consistent with history. The interatrial septum is intact with no evidence for an atrial septal d efect or patent foramen ovale as noted on 2-D or Doppler imaging. AORTIC VALVE The aortic valve is normal in structure and function. Doppler and Color Flow revealed no significant aortic regurgitation. There is no significant aortic valvular stenosis. MITRAL VALVE The mitral valve is normal in structure and function. Mitral annular calcification is mild. There is no evidence of mitral valve prolapse. There is no mitral valve stenosis. Doppler and Color Flow revea led trace mitral valve regurgitation. TRICUSPID VALVE The tricuspid valve is normal in structure and function. Doppler and Color Flow revealed trace tricus pid regurgitation. The PA pressure was estimated at 23 mmHg. There is no tricuspid valve stenosis. PULMONIC VALVE The pulmonic valve is not well visualized. Doppler and Color Flow revealed trace pulmonic valvular re gurgitation. There is no pulmonic valvular stenosis. GREAT VESSELS The aortic root is normal in size. The ascending aorta is not well seen. The IVC is normal in size an d collapses >50% with inspiration. PERICARDIAL EFFUSION There is no evidence of significant pericardial effusion. Critical Notification Critical Value: No <Conclusion> The left ventricle is normal size. Left ventricle systolic function is low normal. The Ejection Fraction is estimated at 50%. Apical motion consistent with pacemaker activation. Doppler and Color Flow revealed no significant aortic regurgitation. There is no significant aortic valvular stenosis. Doppler and Color Flow revealed trace mitral valve regurgitation. Doppler and Color Flow revealed trace tricuspid regurgitation. The PA pressure was estimated at 23 mmHg. Signed by : Mike Calle MD Electronically Approved : 04/22/2020 14:29:10
--- NOTE | 2020-04-22 14:49 | RAD ---
Chest radiograph 04/22/2020 12:00 AM INDICATION: Pacemaker COMPARISON: 04/15/2018 TECHNIQUE: Frontal and lateral views of the chest are provided. FINDINGS: The cardiomediastinal silhouette is within normal limits. Left chest wall cardiac device is identified with leads projecting over the right atrium and right lateral. There are no pleural effusions. There is no pulmonary vascular congestion. There is no pneumothorax. The lungs are clear. No significant osseous abnormality is identified. IMPRESSION: No acute cardiopulmonary process. Electronically signed by: Cari Powell MD (04/22/2020 2:46 PM) [facility]
== END | disposition home or self-care (01) ==
LOC: ECHO 13:11
PROVIDERS: ATTEND Internal Medicine Cardiovascular Disease
DX: I49.5 Sick sinus syndrome (principal); I34.8 Other nonrheumatic mitral valve disorders; Z95.0 Presence of cardiac pacemaker
CPT/HCPCS: 71046; 93306

== ENCOUNTER 2020-08-26 19:41 | Observation (INO) | payer OTHER, MEDICAID ==
[~2020-08-26] VITALS: Ht 162.6 cm; Wt 68.2 kg
[~2020-08-26 19:41] MED LIST changes: +AMLO-186 PO; -AMLO5TAB10 PO
[2020-08-26 20:13] LABS: BASO % 1 % (0-3); EOS % 1 % (0-3); HEMATOCRIT 39.2 % (36.0-47.0); HEMOGLOBIN 13.8 g/dL (12.0-15.5); LYMPH # 2.5 x10^3/uL (1.0-4.8); LYMPH % 31 % (24-48); MEAN CORPUSCULAR HEMOGLOBIN 32 pg (25-35); MEAN CORPUSCULAR HGB CONC 35 g/dL (31-37); MEAN CORPUSCULAR VOLUME 92 fL (79-100); MONO # 0.5 x10^3/uL (0.0-1.1); MONO % 6 % (0-9); NEUT % 62 % (31-73); PLATELET COUNT 218 x10^3/uL (140-400); RED BLOOD COUNT 4.25 x10^6/uL (3.50-5.40); RED CELL DISTRIBUTION WIDTH 14.2 % (11.5-14.5); WHITE BLOOD COUNT 8.1 x10^3/uL (4.0-11.0)
[2020-08-26 20:23] LABS: PROTHROMBIN TIME PATIENT 13.2 SEC (11.7-14.0)
[2020-08-26 20:27] LABS: CALCIUM 9.8 mg/dL (8.5-10.1); CREATININE 0.9 mg/dL (0.6-1.0); GFR 62.8; POTASSIUM 3.6 mmol/L (3.5-5.1)
[2020-08-26 20:33] LABS: ALBUMIN 3.6 g/dL (3.4-5.0); ALBUMIN/GLOBULIN RATIO 1.1 (1.0-1.7)
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
[2020-08-26 20:44] LABS: CREATINE KINASE 39 U/L (26-192)
[2020-08-26] MEDS ORDERED: LIDO:MAALOX 1:1 20 ML SINGLE DOSE. SWSW ONE (20:45)
[2020-08-26] MEDS ORDERED: ASPIRIN 325 MG TABLET PO ONE (20:45)
--- NOTE | 2020-08-26 20:55 | RAD ---
Exam: Chest one view INDICATION: Chest pain TECHNIQUE: Frontal view of chest Comparisons: 04/22/2020 FINDINGS: Pacer with leads terminating the right atrium and ventricle. The cardiomediastinal silhouette and pulmonary vessels are within normal limits. The lung and pleural spaces are clear. IMPRESSION: No acute pulmonary process. Electronically signed by: Josh Dickinson MD (08/26/2020 8:52 PM) GENN[place]O
[2020-08-26] MEDS: NITROGLYCERIN SUBLINGUAL 0.4 MG BOTTLE OF 25. SL PRN ×2 (21:01→21:20)
[2020-08-26] MEDS ORDERED: FAMOTIDINE 20 MG/2 ML VIAL IVP ONE (21:15)
[2020-08-26 21:42] LABS: BILIRUBIN,URINE NEGATIVE (NEG); CLARITY,URINE CLEAR; COLOR,URINE YELLOW; NITRITE,URINE POSITIVE (NEG); PH,URINE 5.5 (<5.0-8.0); PROTEIN,URINE NEGATIVE (NEG-TRACE); UROBILINOGEN,URINE 0.2 mg/dL (0.2 mg/dL)
[2020-08-26 21:49] LABS: BACTERIA,URINE MANY /HPF (0-FEW); RBC,URINE 0 /HPF (0-2); WBC,URINE RARE /HPF (0-4)
[2020-08-27 00:01] VITALS: BP 112/71
[2020-08-27] MEDS ORDERED: PROP325C4 PO (00:43)
[2020-08-27] MEDS ORDERED: METO25TA4 PO (00:43)
[2020-08-27] MEDS ORDERED: LANS30CA PO (00:44)
[2020-08-27] MEDS ORDERED: ASPI81TA59 PO (00:44)
[2020-08-27] MEDS ORDERED: DIAZEPAM10 MG PO (00:50)
[2020-08-27] MEDS ORDERED: diazePAM 5 MG TABLET PO PRN (01:00)
[2020-08-27] MEDS ORDERED: traMADol 50 MG TABLET PO PRN (01:00)
[2020-08-27] MEDS ORDERED: ATORVASTATIN CALCIUM 20 MG TABLET PO SCH ×2 (01:00→09:00)
[2020-08-27] MEDS: PROPAFENONE 150 MG TABLET. PO SCH ×2 (01:19→11:10)
[2020-08-27] MEDS: METOPROLOL TART IMMED RELEASE 25 MG TABLET. PO SCH ×2 (01:20→11:11)
[2020-08-27] MEDS: diazePAM 5 MG TABLET PO PRN ×2 (01:20→11:10)
[2020-08-27 03:15] VITALS: BP 112/47
--- NOTE | 2020-08-27 03:43 | NUR ---
The patient, SREE DUMONT, 65 y/o, F admitted by TESHA BURTON MD, was given written information regarding hospital policies, unit procedures and contact persons. Valuables were checked and orders verified.
[2020-08-27 07:00] VITALS: BP 121/62
[2020-08-27] MEDS ORDERED: PANTOPRAZOLE 40 MG TABLET.DR. PO SCH (07:30)
--- NOTE | 2020-08-27 07:43 | PDOC1 ---
History and Physical Date of Admission Date of Admission DATE: 08/27/20 TIME: 07:33 Identification/Chief Complaint Chief Complaint Chest pain Source Source: Chart review, Patient History of Present Illness History of Present Illness Patient 65-year-old female with past medical history of A. fib sick sinus syndrome with pacemaker who presents to the ED with complaints of substernal chest pain began yesterday. Patient reports the pain more as chest tightness, 6/10. Continue aspirin for symptoms with improvement. She denies any alleviating factors. Upon arrival in the ER patient is breathing on room air and afebrile. Initial troponins undetectable. Patient denies any chest pain currently. Troponin 0.017x2, BNP 134 Past Medical History Cardiovascular: CAD, HTN, Hyperlipidemia Pulmonary: COPD GI: Diverticulosis, GERD Musculoskeletal: low back pain Past Surgical History Past Surgical History: Pacemaker, Appendectomy, Cholecystectomy, Mastectomy, Hysterectomy Family History Family History: Depression Social History Smoke: <1 pack per day ALCOHOL: none Drugs: None Current Problem List Problem List Problems Medical Problems: (1) Chest pain Status: Acute Current Medications Current Medications Current Medications Multi-Ingredient Mouthwash/Gargle (Gi Cocktail) 20 ml 1X ONCE SWSW ; Start 08/26/20 at 20:45; Stop 08/26/20 at 20:46; Status DC Aspirin (Richa Aspirin) 325 mg 1X ONCE PO Last administered on 08/26/20at 20:49; Start 08/26/20 at 20:45; Stop 08/26/20 at 20:46; Status DC Nitroglycerin (Nitrostat) 0.4 mg PRN Q5MIN PRN SL CHEST PAIN Last administered on 08/26/20at 21:20; Start 08/26/20 at 21:00 Famotidine (Pepcid Vial) 20 mg 1X ONCE IVP Last administered on 08/26/20at 21:21; Start 08/26/20 at 21:15; Stop 08/26/20 at 21:16; Status DC Amlodipine Besylate (Norvasc) 5 mg DAILY PO ; Start 08/27/20 at 09:00 Aspirin (Aspirin Chewable) 81 mg DAILYWBKFT PO ; Start 08/27/20 at 08:00 Atorvastatin Calcium (Lipitor) 20 mg DAILY PO ; Start 08/27/20 at 09:00; Stop 08/27/20 at 00:56; Status DC Metoprolol Tartrate (Lopressor) 12.5 mg BID PO Last administered on 08/27/20at 01:20; Start 08/27/20 at 01:00 Tramadol HCl (Ultram) 50 mg PRN Q6HRS PRN PO PAIN; Start 08/27/20 at 01:00 Diazepam (Valium) 10 mg PRN TID PRN PO seizures; Start 08/27/20 at 01:00; Stop 08/27/20 at 01:04; Status DC Pantoprazole Sodium (Protonix) 40 mg DAILYAC PO ; Start 08/27/20 at 07:30 Non-Formulary Medication (Propafenone Hcl ) 1 cap BID PO ; Start 08/27/20 at 09:00; Stop 08/27/20 at 00:56; Status DC Atorvastatin Calcium (Lipitor) 20 mg HS PO Last administered on 08/27/20at 01:20; Start 08/27/20 at 01:00 Propafenone HCl (Rythmol) 300 mg BID PO Last administered on 08/27/20at 01:19; Start 08/27/20 at 01:00 Diazepam (Valium) 10 mg PRN TID PRN PO seizures Last administered on 08/27/20at 01:20; Start 08/27/20 at 01:04 Active Scripts Active Tramadol Hcl 50 Mg Tablet 50 Mg PO Q6HRS PRN 30 Days Reported Diazepam 10 Mg Tablet 10 Mg PO PRN TID PRN Children's Aspirin (Aspirin) 81 Mg Tab.chew 1 Tab PO DAILY 30 Days Lansoprazole 30 Mg Capsule.dr 1 Cap PO DAILY Metoprolol Tartrate 25 Mg Tablet 12.5 PO BID Propafenone Hcl 325 Mg Cap.er.12h 1 Cap PO BID Amlodipine Besylate 5 Mg Tablet 5 Mg PO DAILY Atorvastatin Calcium 20 Mg Tablet 20 Mg PO DAILY Losartan Potassium 100 Mg Tablet Mg PO DAILY Allergies Allergies: Coded Allergies: codeine (Verified Allergy, Intermediate, 04/13/18) hydrocodone (Verified Allergy, Intermediate, 04/13/18) acetaminophen (Verified Adverse Reaction, Mild, agitation/hyperactivity, 04/12/18) hydrocodone bitartrate (Verified Adverse Reaction, Mild, agitation/hyperactivity, 04/12/18) meperidine HCl (Verified Adverse Reaction, Mild, agitation/hyperactivity, 04/12/18) morphine (Verified Adverse Reaction, Mild, agitation/hyperactive, 04/12/18) ROS Review of System GENERAL: No history of weight change, weakness or fevers. SKIN: No bruising, hair changes or rashes. EYES: No blurred, double or loss of vision. NOSE AND THROAT: No history of nosebleeds, hoarseness or sore throat. HEART: Chest pain. Denies palpitations. LUNGS: Denies cough, hemoptysis, wheezing or shortness of breath. GASTROINTESTINAL: Denies nausea, vomiting, abdominal pain. GENITOURINARY: Denies dysuria, frequency, urgency, hematuria. NEUROLOGIC: Denies history of numbness, tingling, tremor or weakness. PSYCHIATRIC: Denies anxiety, denies depression. ENDOCRINE: No history of heat or cold intolerance, polyuria or polydipsia. EXTREMITIES: Denies muscle weakness, joint pain, pain on walking or stiffness. Physical Exam Physical Exam General: Alert, Oriented X3, Cooperative, No acute distress HEENT: PERRLA, EOMI Lungs: Clear to auscultation, Normal air movement Heart: RRR, no murmurs, pacer to left chest wall Cardiovascular: S1, S2 Abdomen: Normal bowel sounds, Soft, No tenderness Extremities: No clubbing, No cyanosis Skin: No rashes, No significant lesion Neuro: Normal speech, Normal tone, Sensation intact Psych/Mental Status: Mental status NL, Mood NL Vitals Vitals Vital Signs Date Time Temp Pulse Resp B/P (MAP) Pulse Ox O2 Delivery O2 Flow Rate FiO2 08/27/20 03:15 97.9 76 18 112/47 (68) 96 Room Air 97.9 Labs Labs Laboratory Tests Test 08/26/20 20:05 08/26/20 21:17 08/27/20 01:00 White Blood Count 8.1 x10^3/uL (4.0-11.0) Red Blood Count 4.25 x10^6/uL (3.50-5.40) Hemoglobin 13.8 g/dL (12.0-15.5) Hematocrit 39.2 % (36.0-47.0) Mean Corpuscular Volume 92 fL (79-100) Mean Corpuscular Hemoglobin 32 pg (25-35) Mean Corpuscular Hemoglobin Concent 35 g/dL (31-37) Red Cell Distribution Width 14.2 % (11.5-14.5) Platelet Count 218 x10^3/uL (140-400) Neutrophils (%) (Auto) 62 % (31-73) Lymphocytes (%) (Auto) 31 % (24-48) Monocytes (%) (Auto) 6 % (0-9) Eosinophils (%) (Auto) 1 % (0-3) Basophils (%) (Auto) 1 % (0-3) Neutrophils # (Auto) 5.0 x10^3/uL (1.8-7.7) Lymphocytes # (Auto) 2.5 x10^3/uL (1.0-4.8) Monocytes # (Auto) 0.5 x10^3/uL (0.0-1.1) Eosinophils # (Auto) 0.0 x10^3/uL (0.0-0.7) Basophils # (Auto) 0.0 x10^3/uL (0.0-0.2) Prothrombin Time 13.2 SEC (11.7-14.0) Prothromb Time International Ratio 1.0 (0.8-1.1) Activated Partial Thromboplast Time 56 SEC (24-38) Sodium Level 142 mmol/L (136-145) Potassium Level 3.6 mmol/L (3.5-5.1) Chloride Level 108 mmol/L (98-107) Carbon Dioxide Level 24 mmol/L (21-32) Anion Gap 10 (6-14) Blood Urea Nitrogen 17 mg/dL (7-20) Creatinine 0.9 mg/dL (0.6-1.0) Estimated GFR (Cockcroft-Gault) 62.8 BUN/Creatinine Ratio 19 (6-20) Glucose Level 137 mg/dL (70-99) Calcium Level 9.8 mg/dL (8.5-10.1) Magnesium Level 2.0 mg/dL (1.8-2.4) Total Bilirubin 1.0 mg/dL (0.2-1.0) Aspartate Amino Transf (AST/SGOT) 14 U/L (15-37) Alanine Aminotransferase (ALT/SGPT) 20 U/L (14-59) Alkaline Phosphatase 88 U/L (46-116) Creatine Kinase 39 U/L (26-192) Creatine Kinase MB (Mass) 0.6 ng/mL (0.0-3.6) Creatine Kinase MB Relative Index % (0-4) Troponin I Quantitative < 0.017 ng/mL (0.000-0.055) < 0.017 ng/mL (0.000-0.055) ZR-Ffb-P-Type Natriuretic Peptide 134 pg/mL (0-124) Total Protein 7.0 g/dL (6.4-8.2) Albumin 3.6 g/dL (3.4-5.0) Albumin/Globulin Ratio 1.1 (1.0-1.7) Lipase 186 U/L (73-393) Urine Collection Type Unknown Urine Color Yellow Urine Clarity Clear Urine pH 5.5 (<5.0-8.0) Urine Specific [place] 1.010 (1.000-1.030) Urine Protein Negative mg/dL (NEG-TRACE) Urine Glucose (UA) Negative mg/dL (NEG) Urine Ketones (Stick) Negative mg/dL (NEG) Urine Blood Negative (NEG) Urine Nitrite Positive (NEG) Urine Bilirubin Negative (NEG) Urine Urobilinogen Dipstick 0.2 mg/dL (0.2 mg/dL) Urine Leukocyte Esterase Negative (NEG) Urine RBC 0 /HPF (0-2) Urine WBC Rare /HPF (0-4) Urine Squamous Epithelial Cells Occ /LPF Urine Bacteria Many /HPF (0-FEW) Laboratory Tests Test 08/26/20 20:05 08/26/20 21:17 08/27/20 01:00 White Blood Count 8.1 x10^3/uL (4.0-11.0) Red Blood Count 4.25 x10^6/uL (3.50-5.40) Hemoglobin 13.8 g/dL (12.0-15.5) Hematocrit 39.2 % (36.0-47.0) Mean Corpuscular Volume 92 fL (79-100) Mean Corpuscular Hemoglobin 32 pg (25-35) Mean Corpuscular Hemoglobin Concent 35 g/dL (31-37) Red Cell Distribution Width 14.2 % (11.5-14.5) Platelet Count 218 x10^3/uL (140-400) Neutrophils (%) (Auto) 62 % (31-73) Lymphocytes (%) (Auto) 31 % (24-48) Monocytes (%) (Auto) 6 % (0-9) Eosinophils (%) (Auto) 1 % (0-3) Basophils (%) (Auto) 1 % (0-3) Neutrophils # (Auto) 5.0 x10^3/uL (1.8-7.7) Lymphocytes # (Auto) 2.5 x10^3/uL (1.0-4.8) Monocytes # (Auto) 0.5 x10^3/uL (0.0-1.1) Eosinophils # (Auto) 0.0 x10^3/uL (0.0-0.7) Basophils # (Auto) 0.0 x10^3/uL (0.0-0.2) Prothrombin Time 13.2 SEC (11.7-14.0) Prothromb Time International Ratio 1.0 (0.8-1.1) Activated Partial Thromboplast Time 56 SEC (24-38) Sodium Level 142 mmol/L (136-145) Potassium Level 3.6 mmol/L (3.5-5.1) Chloride Level 108 mmol/L (98-107) Carbon Dioxide Level 24 mmol/L (21-32) Anion Gap 10 (6-14) Blood Urea Nitrogen 17 mg/dL (7-20) Creatinine 0.9 mg/dL (0.6-1.0) Estimated GFR (Cockcroft-Gault) 62.8 BUN/Creatinine Ratio 19 (6-20) Glucose Level 137 mg/dL (70-99) Calcium Level 9.8 mg/dL (8.5-10.1) Magnesium Level 2.0 mg/dL (1.8-2.4) Total Bilirubin 1.0 mg/dL (0.2-1.0) Aspartate Amino Transf (AST/SGOT) 14 U/L (15-37) Alanine Aminotransferase (ALT/SGPT) 20 U/L (14-59) Alkaline Phosphatase 88 U/L (46-116) Creatine Kinase 39 U/L (26-192) Creatine Kinase MB (Mass) 0.6 ng/mL (0.0-3.6) Creatine Kinase MB Relative Index % (0-4) Troponin I Quantitative < 0.017 ng/mL (0.000-0.055) < 0.017 ng/mL (0.000-0.055) AL-Fne-N-Type Natriuretic Peptide 134 pg/mL (0-124) Total Protein 7.0 g/dL (6.4-8.2) Albumin 3.6 g/dL (3.4-5.0) Albumin/Globulin Ratio 1.1 (1.0-1.7) Lipase 186 U/L (73-393) Urine Collection Type Unknown Urine Color Yellow Urine Clarity Clear Urine pH 5.5 (<5.0-8.0) Urine Specific [place] 1.010 (1.000-1.030) Urine Protein Negative mg/dL (NEG-TRACE) Urine Glucose (UA) Negative mg/dL (NEG) Urine Ketones (Stick) Negative mg/dL (NEG) Urine Blood Negative (NEG) Urine Nitrite Positive (NEG) Urine Bilirubin Negative (NEG) Urine Urobilinogen Dipstick 0.2 mg/dL (0.2 mg/dL) Urine Leukocyte Esterase Negative (NEG) Urine RBC 0 /HPF (0-2) Urine WBC Rare /HPF (0-4) Urine Squamous Epithelial Cells Occ /LPF Urine Bacteria Many /HPF (0-FEW) Images Images Exam: Chest one view INDICATION: Chest pain TECHNIQUE: Frontal view of chest Comparisons: 04/22/2020 FINDINGS: Pacer with leads terminating the right atrium and ventricle. The cardiomediastinal silhouette and pulmonary vessels are within normal limits. The lung and pleural spaces are clear. IMPRESSION: No acute pulmonary process. VTE Prophylaxis Ordered VTE Prophylaxis Devices: Yes VTE Pharmacological Prophylaxi: No Assessment/Plan Assessment/Plan Acute coronary syndrome Unstable angina A. fib Hypertension Plan: Initial troponins undetectable x2, will trend Consult with cardiology Morphine, nitroglycerin, oxygen as needed Echocardiogram performed 04/22/2020 showed EF 50% and pulmonary pressure 23 mmHg Patient notes her application support administrator is Dr. Cha. She is currently anxious to discharge today knowing that her initial 2 troponins were undetectable. Resume patient's home medication FEN - Cardiac diet PPX - SCDs FULL CODE Dispo - observation for above Pending cardiology evaluation patient may discharge today home with close PCP, cardiology follow-up Justifications for Admission Other Justification ADILENE RODRIGES MD Aug 27, 2020 07:43
[2020-08-27 07:49] LABS: CHOLESTEROL/HDL RATIO 4.2
[2020-08-27] MEDS ORDERED: ASPIRIN CHEWABLE 81 MG TABLET. PO SCH (08:00)
--- NOTE | 2020-08-27 08:22 | PDOC2 ---
JOSHUA GARCIA COURTROOM CLERK 08/27/20 0822: CARDIAC CONSULT DATE OF CONSULT Date of Consult DATE: 08/27/20 TIME: 08:12 REASON FOR CONSULT Reason for Consult: Chest pain REFERRING PHYSICIAN Referring Physician: Fan SOURCE Source: Chart review, Patient HISTORY OF PRESENT ILLNESS HISTORY OF PRESENT ILLNESS This is a pleasant 65 yo female admitted for complains of chest pain. Her chest pain is lower midsternal which sometimes goes to her left rib cage. Denies SOA, nausea or vomiting. No recent falls or injury and no sensations of palpitations. No arrhythmia so far per nurse monitoring and atrial pacing. She has been anxious due to stress and also potentially will be having another breast reconstruction. PAST MEDICAL HISTORY Cardiovascular: AFIB, HTN, Hyperlipidemia, Other (SSS) Pulmonary: No pertinent hx, COPD (?) CENTRAL NERVOUS SYSTEM: Other (No pertinent history) GI: Diverticulosis, GERD, Other (hiatal hernia) Heme/Onc: Cancer (breast) Psych: Anxiety Musculoskeletal: Osteoarthritis Rheumatologic: No pertinent hx Infectious disease: No pertinent hx ENT: No pertinent hx Renal/: No pertinent hx Endocrine: No pertinent hx Dermatology: No pertinent hx PAST SURGICAL HISTORY Past Surgical History: Pacemaker (abbot), Arthroscopy (left femoral fracture repair), Cholecystectomy, Mastectomy (bilateral with reconstruction), Hysterectomy, Other (kyphoplasty) FAMILY HISTORY Family History: Heart Disease, Hypertension SOCIAL HISTORY Smoke: <1 pack per day ALCOHOL: none Drugs: None Lives: with Family CURRENT MEDICATIONS CURRENT MEDICATIONS Current Medications Medications (Trade) Dose Ordered Sig/Jose Route PRN Reason Start Time Stop Time Status Last Admin Dose Admin Aspirin (Richa Aspirin) 325 mg 1X ONCE PO 08/26/20 20:45 08/26/20 20:46 DC 08/26/20 20:49 Nitroglycerin (Nitrostat) 0.4 mg PRN Q5MIN PRN SL CHEST PAIN 08/26/20 21:00 08/26/20 21:20 Famotidine (Pepcid Vial) 20 mg 1X ONCE IVP 08/26/20 21:15 08/26/20 21:16 DC 08/26/20 21:21 Metoprolol Tartrate (Lopressor) 12.5 mg BID PO 08/27/20 01:00 08/27/20 01:20 Atorvastatin Calcium (Lipitor) 20 mg HS PO 08/27/20 01:00 08/27/20 01:20 Propafenone HCl (Rythmol) 300 mg BID PO 08/27/20 01:00 08/27/20 01:19 Diazepam (Valium) 10 mg PRN TID PRN PO seizures 08/27/20 01:04 08/27/20 01:20 ALLERGIES ALLERGIES: Coded Allergies: codeine (Verified Allergy, Intermediate, 04/13/18) hydrocodone (Verified Allergy, Intermediate, 04/13/18) acetaminophen (Verified Adverse Reaction, Mild, agitation/hyperactivity, 04/12/18) hydrocodone bitartrate (Verified Adverse Reaction, Mild, agitation/hyperactivity, 04/12/18) meperidine HCl (Verified Adverse Reaction, Mild, agitation/hyperactivity, 04/12/18) morphine (Verified Adverse Reaction, Mild, agitation/hyperactive, 04/12/18) ROS Review of System 14 point ROS evaluated with pertinent positives noted per HPI PHYSICAL EXAM General: Alert, Oriented X3, Cooperative, No acute distress HEENT: Atraumatic, Mucous membr. moist/pink Lungs: Clear to auscultation, Normal air movement Heart: Regular rate (atrial paced), Normal S1, Normal S2, No murmurs Abdomen: Soft, No tenderness Extremities: No cyanosis, No edema Skin: No breakdown, No significant lesion Neuro: Normal speech, Sensation intact Psych/Mental Status: Mental status NL, Mood NL MUSCULOSKELETAL: Osteoarthritic changes both hands VITALS/I&O VITALS/I&O: Vital Signs Date Time Temp Pulse Resp B/P (MAP) Pulse Ox O2 Delivery O2 Flow Rate FiO2 08/27/20 07:00 97.7 71 19 121/62 (81) 95 Room Air 97.7 I & O 08/26/20 08/26/20 08/27/20 15:00 23:00 07:00 Intake Total 240 ml Balance 240 ml LABS Lab: Laboratory Tests Test 08/26/20 20:05 08/26/20 21:17 08/27/20 01:00 White Blood Count 8.1 x10^3/uL (4.0-11.0) Red Blood Count 4.25 x10^6/uL (3.50-5.40) Hemoglobin 13.8 g/dL (12.0-15.5) Hematocrit 39.2 % (36.0-47.0) Mean Corpuscular Volume 92 fL (79-100) Mean Corpuscular Hemoglobin 32 pg (25-35) Mean Corpuscular Hemoglobin Concent 35 g/dL (31-37) Red Cell Distribution Width 14.2 % (11.5-14.5) Platelet Count 218 x10^3/uL (140-400) Neutrophils (%) (Auto) 62 % (31-73) Lymphocytes (%) (Auto) 31 % (24-48) Monocytes (%) (Auto) 6 % (0-9) Eosinophils (%) (Auto) 1 % (0-3) Basophils (%) (Auto) 1 % (0-3) Neutrophils # (Auto) 5.0 x10^3/uL (1.8-7.7) Lymphocytes # (Auto) 2.5 x10^3/uL (1.0-4.8) Monocytes # (Auto) 0.5 x10^3/uL (0.0-1.1) Eosinophils # (Auto) 0.0 x10^3/uL (0.0-0.7) Basophils # (Auto) 0.0 x10^3/uL (0.0-0.2) Prothrombin Time 13.2 SEC (11.7-14.0) Prothrombin Time INR 1.0 (0.8-1.1) Activated Partial Thromboplast Time 56 SEC (24-38) H Sodium Level 142 mmol/L (136-145) Potassium Level 3.6 mmol/L (3.5-5.1) Chloride Level 108 mmol/L (98-107) H Carbon Dioxide Level 24 mmol/L (21-32) Anion Gap 10 (6-14) Blood Urea Nitrogen 17 mg/dL (7-20) Creatinine 0.9 mg/dL (0.6-1.0) Estimated GFR (Cockcroft-Gault) 62.8 BUN/Creatinine Ratio 19 (6-20) Glucose Level 137 mg/dL (70-99) H Calcium Level 9.8 mg/dL (8.5-10.1) Magnesium Level 2.0 mg/dL (1.8-2.4) Total Bilirubin 1.0 mg/dL (0.2-1.0) Aspartate Amino Transferase (AST) 14 U/L (15-37) L Alanine Aminotransferase (ALT) 20 U/L (14-59) Alkaline Phosphatase 88 U/L (46-116) Creatine Kinase 39 U/L (26-192) Creatine Kinase MB (Mass) 0.6 ng/mL (0.0-3.6) Creatine Kinase MB Relative Index % (0-4) Troponin I Quantitative < 0.017 ng/mL (0.000-0.055) < 0.017 ng/mL (0.000-0.055) ZW-Qxr-Q-Type Natriuretic Peptide 134 pg/mL (0-124) H Total Protein 7.0 g/dL (6.4-8.2) Albumin 3.6 g/dL (3.4-5.0) Albumin/Globulin Ratio 1.1 (1.0-1.7) Lipase 186 U/L (73-393) Urine Collection Type Unknown Urine Color Yellow Urine Clarity Clear Urine pH 5.5 (<5.0-8.0) Urine Specific [employer] 1.010 (1.000-1.030) Urine Protein Negative mg/dL (NEG-TRACE) Urine Glucose (UA) Negative mg/dL (NEG) Urine Ketones (Stick) Negative mg/dL (NEG) Urine Blood Negative (NEG) Urine Nitrite Positive (NEG) Urine Bilirubin Negative (NEG) Urine Urobilinogen Dipstick 0.2 mg/dL (0.2 mg/dL) Urine Leukocyte Esterase Negative (NEG) Urine RBC 0 /HPF (0-2) Urine WBC Rare /HPF (0-4) Urine Squamous Epithelial Cells Occ /LPF Urine Bacteria Many /HPF (0-FEW) Triglycerides Level 318 mg/dL (0-150) H Cholesterol Level 135 mg/dL (0-200) LDL Cholesterol, Calculated 39 mg/dL (0-100) VLDL Cholesterol, Calculated 64 mg/dL (0-40) H Non-HDL Cholesterol Calculated 103 mg/dL (0-129) HDL Cholesterol 32 mg/dL (40-60) L Cholesterol/HDL Ratio 4.2 Laboratory Tests 08/26/20 20:05 Laboratory Tests 08/26/20 20:05 ECHOCARDIOGRAM ECHOCARDIOGRAM <Conclusion> The left ventricle is normal size. Left ventricle systolic function is low normal. The Ejection Fraction is estimated at 50%. Apical motion consistent with pacemaker activation. Doppler and Color Flow revealed no significant aortic regurgitation. There is no significant aortic valvular stenosis. Doppler and Color Flow revealed trace mitral valve regurgitation. Doppler and Color Flow revealed trace tricuspid regurgitation. The PA pressure was estimated at 23 mmHg. DATE: 04/22/20 1413 HEART CATH HEART CATH Coronary Angiography The patient's coronary anatomy is right dominant. The left main coronary artery is a large size vessel free of disease. The left main trifurcates to the left anterior descending, circumflex, and ramus. The left anterior descending artery is a large size vessel free of disease. The first diagonal branch is a medium size vessel free of disease. The second diagonal branch is a small size vessel free of disease. The third diagonal branch is a small size vessel free of disease. The circumflex artery is a medium size vessel free of disease. The first obtuse marginal branch is a small size vessel free of disease. The second obtuse marginal branch is a small size vessel free of disease. The third obtuse marginal branch is a small size vessel free of disease. The ramus intermedius artery is a medium size vessel free of disease. The right coronary artery is a large size vessel with intimal irregularities and without significant stenosis. There is a 35% stenosis in the proximal segment. The right posterior descending artery is a medium size vessel free of disease. The right posterolateral branch is a small size vessel free of disease. Left Ventriculography The left ventricle is normal in size with normal contractility. The left ventricular ejection fraction is estimated to be 65%. The left ventricular end diastolic pressure is 16 mmHg. There was no gradient across the aortic valve upon pullback. Conclusion This pt has no coronary artery disease. I would recommend to continue with the medical treatment for the dysrhythmias with the Propafenone 300 mg po bid. If stable may go home in AM. Recommendations Medical Therapy DATE: 04/12/18 1616 ASSESSMENT/PLAN ASSESSMENT/PLAN 1. Atypical Chest pain: doubt ACS. Suspect MSK 2. HTN: controlled 3. HLP: high TG 4. SSS with PPM in situ: atrial pacing recent device reports that one of her lead is probably defective 5. Hx of bilateral mastectomy with reconstruction 6. PAFIB: SR 7. Anxiety/stress 8. UTI: per PCP Recommendations Recent TTE unremarkable recent [facility] 2017 no CAD. May DC per cardiac standpoint after interrogation Continue home meds including propafenone. ASA Low AFIB burden Continue statin, diet modification, start on fish oil Interrogate device EDILIA QUIROGA MD 08/27/20 1537: CARDIAC CONSULT ASSESSMENT/PLAN ASSESSMENT/PLAN Patient seen and examined. Agree with [facility] STITCHER's assessment and plan. Chest pain with atypical features and most probably musculoskeletal. Myocardial infarction has been ruled out. Agree with device interrogation prior to discharge. PAF maintaining sinus rhythm. Continue propafenone for antiarrhythmic therapy. Possible DC home later today. Thank you for your consultation JOSHUA GARCIA APRN Aug 27, 2020 08:22 EDILIA QUIROGA MD Aug 27, 2020 15:37
[2020-08-27] MEDS ORDERED: PROPAFENONE HCL PO SCH (09:00)
[2020-08-27] MEDS ORDERED: amLODIPine BESYLATE 5 MG TABLET PO SCH (09:00)
--- NOTE | 2020-08-27 09:45 | NUR ---
[facility] called at and spoke with Uriah about sending a account services representative to interrogate pt's pacemaker.
[2020-08-27 10:47] VITALS: BP 123/72
[2020-08-27] MEDS ORDERED: OMEGA-3 FATTY ACIDS/FISH OIL 1,000 MG CAPSULE. PO SCH (11:00)
[2020-08-27 11:11] VITALS: BP 123/72
--- NOTE | 2020-08-27 11:51 | NUR ---
SS following for discharge planning. SS reviewed pt chart and discussed with pt RN. Pt is from home and is currently on room air. Discharge plan is to home when medically ready. SS will continue to follow for discharge planning.
--- NOTE | 2020-08-27 12:42 | EKG ---
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
--- NOTE | 2020-08-27 15:23 | PDOC3 ---
Discharge Summary Visit Information Date of Admission: Aug 27, 2020 Date of Discharge: Aug 27, 2020 Final Diagnosis Problems Medical Problems: (1) Chest pain Status: Acute Brief Hospital Course Allergies Allergies Coded Allergies Type Severity Reaction Last Updated Verified codeine Allergy Intermediate 04/13/18 Yes hydrocodone Allergy Intermediate 04/13/18 Yes acetaminophen Adverse Reaction Mild agitation/hyperactivity 04/12/18 Yes hydrocodone bitartrate Adverse Reaction Mild agitation/hyperactivity 04/12/18 Yes meperidine HCl Adverse Reaction Mild agitation/hyperactivity 04/12/18 Yes morphine Adverse Reaction Mild agitation/hyperactive 04/12/18 Yes Vital Signs Vital Signs Date Time Temp Pulse Resp B/P (MAP) Pulse Ox O2 Delivery O2 Flow Rate FiO2 08/27/20 11:11 70 123/72 08/27/20 10:47 98.0 20 98 Room Air 98.0 Lab Results Laboratory Tests Test 08/26/20 20:05 08/26/20 21:17 08/27/20 01:00 White Blood Count 8.1 x10^3/uL (4.0-11.0) Red Blood Count 4.25 x10^6/uL (3.50-5.40) Hemoglobin 13.8 g/dL (12.0-15.5) Hematocrit 39.2 % (36.0-47.0) Mean Corpuscular Volume 92 fL (79-100) Mean Corpuscular Hemoglobin 32 pg (25-35) Mean Corpuscular Hemoglobin Concent 35 g/dL (31-37) Red Cell Distribution Width 14.2 % (11.5-14.5) Platelet Count 218 x10^3/uL (140-400) Neutrophils (%) (Auto) 62 % (31-73) Lymphocytes (%) (Auto) 31 % (24-48) Monocytes (%) (Auto) 6 % (0-9) Eosinophils (%) (Auto) 1 % (0-3) Basophils (%) (Auto) 1 % (0-3) Neutrophils # (Auto) 5.0 x10^3/uL (1.8-7.7) Lymphocytes # (Auto) 2.5 x10^3/uL (1.0-4.8) Monocytes # (Auto) 0.5 x10^3/uL (0.0-1.1) Eosinophils # (Auto) 0.0 x10^3/uL (0.0-0.7) Basophils # (Auto) 0.0 x10^3/uL (0.0-0.2) Prothrombin Time 13.2 SEC (11.7-14.0) Prothromb Time International Ratio 1.0 (0.8-1.1) Activated Partial Thromboplast Time 56 SEC (24-38) Sodium Level 142 mmol/L (136-145) Potassium Level 3.6 mmol/L (3.5-5.1) Chloride Level 108 mmol/L (98-107) Carbon Dioxide Level 24 mmol/L (21-32) Anion Gap 10 (6-14) Blood Urea Nitrogen 17 mg/dL (7-20) Creatinine 0.9 mg/dL (0.6-1.0) Estimated GFR (Cockcroft-Gault) 62.8 BUN/Creatinine Ratio 19 (6-20) Glucose Level 137 mg/dL (70-99) Calcium Level 9.8 mg/dL (8.5-10.1) Magnesium Level 2.0 mg/dL (1.8-2.4) Total Bilirubin 1.0 mg/dL (0.2-1.0) Aspartate Amino Transf (AST/SGOT) 14 U/L (15-37) Alanine Aminotransferase (ALT/SGPT) 20 U/L (14-59) Alkaline Phosphatase 88 U/L (46-116) Creatine Kinase 39 U/L (26-192) Creatine Kinase MB (Mass) 0.6 ng/mL (0.0-3.6) Creatine Kinase MB Relative Index % (0-4) Troponin I Quantitative < 0.017 ng/mL (0.000-0.055) < 0.017 ng/mL (0.000-0.055) PL-Ngi-Q-Type Natriuretic Peptide 134 pg/mL (0-124) Total Protein 7.0 g/dL (6.4-8.2) Albumin 3.6 g/dL (3.4-5.0) Albumin/Globulin Ratio 1.1 (1.0-1.7) Lipase 186 U/L (73-393) Urine Collection Type Unknown Urine Color Yellow Urine Clarity Clear Urine pH 5.5 (<5.0-8.0) Urine Specific [place] 1.010 (1.000-1.030) Urine Protein Negative mg/dL (NEG-TRACE) Urine Glucose (UA) Negative mg/dL (NEG) Urine Ketones (Stick) Negative mg/dL (NEG) Urine Blood Negative (NEG) Urine Nitrite Positive (NEG) Urine Bilirubin Negative (NEG) Urine Urobilinogen Dipstick 0.2 mg/dL (0.2 mg/dL) Urine Leukocyte Esterase Negative (NEG) Urine RBC 0 /HPF (0-2) Urine WBC Rare /HPF (0-4) Urine Squamous Epithelial Cells Occ /LPF Urine Bacteria Many /HPF (0-FEW) Triglycerides Level 318 mg/dL (0-150) Cholesterol Level 135 mg/dL (0-200) LDL Cholesterol, Calculated 39 mg/dL (0-100) VLDL Cholesterol, Calculated 64 mg/dL (0-40) Non-HDL Cholesterol Calculated 103 mg/dL (0-129) HDL Cholesterol 32 mg/dL (40-60) Cholesterol/HDL Ratio 4.2 Laboratory Tests Test 08/26/20 20:05 08/26/20 21:17 08/27/20 01:00 White Blood Count 8.1 x10^3/uL (4.0-11.0) Red Blood Count 4.25 x10^6/uL (3.50-5.40) Hemoglobin 13.8 g/dL (12.0-15.5) Hematocrit 39.2 % (36.0-47.0) Mean Corpuscular Volume 92 fL (79-100) Mean Corpuscular Hemoglobin 32 pg (25-35) Mean Corpuscular Hemoglobin Concent 35 g/dL (31-37) Red Cell Distribution Width 14.2 % (11.5-14.5) Platelet Count 218 x10^3/uL (140-400) Neutrophils (%) (Auto) 62 % (31-73) Lymphocytes (%) (Auto) 31 % (24-48) Monocytes (%) (Auto) 6 % (0-9) Eosinophils (%) (Auto) 1 % (0-3) Basophils (%) (Auto) 1 % (0-3) Neutrophils # (Auto) 5.0 x10^3/uL (1.8-7.7) Lymphocytes # (Auto) 2.5 x10^3/uL (1.0-4.8) Monocytes # (Auto) 0.5 x10^3/uL (0.0-1.1) Eosinophils # (Auto) 0.0 x10^3/uL (0.0-0.7) Basophils # (Auto) 0.0 x10^3/uL (0.0-0.2) Prothrombin Time 13.2 SEC (11.7-14.0) Prothromb Time International Ratio 1.0 (0.8-1.1) Activated Partial Thromboplast Time 56 SEC (24-38) Sodium Level 142 mmol/L (136-145) Potassium Level 3.6 mmol/L (3.5-5.1) Chloride Level 108 mmol/L (98-107) Carbon Dioxide Level 24 mmol/L (21-32) Anion Gap 10 (6-14) Blood Urea Nitrogen 17 mg/dL (7-20) Creatinine 0.9 mg/dL (0.6-1.0) Estimated GFR (Cockcroft-Gault) 62.8 BUN/Creatinine Ratio 19 (6-20) Glucose Level 137 mg/dL (70-99) Calcium Level 9.8 mg/dL (8.5-10.1) Magnesium Level 2.0 mg/dL (1.8-2.4) Total Bilirubin 1.0 mg/dL (0.2-1.0) Aspartate Amino Transf (AST/SGOT) 14 U/L (15-37) Alanine Aminotransferase (ALT/SGPT) 20 U/L (14-59) Alkaline Phosphatase 88 U/L (46-116) Creatine Kinase 39 U/L (26-192) Creatine Kinase MB (Mass) 0.6 ng/mL (0.0-3.6) Creatine Kinase MB Relative Index % (0-4) Troponin I Quantitative < 0.017 ng/mL (0.000-0.055) < 0.017 ng/mL (0.000-0.055) HS-Rda-G-Type Natriuretic Peptide 134 pg/mL (0-124) Total Protein 7.0 g/dL (6.4-8.2) Albumin 3.6 g/dL (3.4-5.0) Albumin/Globulin Ratio 1.1 (1.0-1.7) Lipase 186 U/L (73-393) Urine Collection Type Unknown Urine Color Yellow Urine Clarity Clear Urine pH 5.5 (<5.0-8.0) Urine Specific [place] 1.010 (1.000-1.030) Urine Protein Negative mg/dL (NEG-TRACE) Urine Glucose (UA) Negative mg/dL (NEG) Urine Ketones (Stick) Negative mg/dL (NEG) Urine Blood Negative (NEG) Urine Nitrite Positive (NEG) Urine Bilirubin Negative (NEG) Urine Urobilinogen Dipstick 0.2 mg/dL (0.2 mg/dL) Urine Leukocyte Esterase Negative (NEG) Urine RBC 0 /HPF (0-2) Urine WBC Rare /HPF (0-4) Urine Squamous Epithelial Cells Occ /LPF Urine Bacteria Many /HPF (0-FEW) Triglycerides Level 318 mg/dL (0-150) Cholesterol Level 135 mg/dL (0-200) LDL Cholesterol, Calculated 39 mg/dL (0-100) VLDL Cholesterol, Calculated 64 mg/dL (0-40) Non-HDL Cholesterol Calculated 103 mg/dL (0-129) HDL Cholesterol 32 mg/dL (40-60) Cholesterol/HDL Ratio 4.2 Brief Hospital Course Ms. Parks is a 65 old female who presented with chest pain. Consultation placed to cardiology. Her troponins were trended and undetectable. She had her pacemaker interrogated, and was stable for discharge with cardiology follow-up. Discharge Information Condition at Discharge: Stable Follow Up: Weeks Disposition/Orders: D/C to Home Scheduled Amlodipine Besylate (Amlodipine Besylate) 5 Mg Tablet, 5 MG PO DAILY, (Reported) Entered as Reported by: KYLIE JAMA on 02/17/18130 Last Action: Continued on 08/27/2051 by ANGELITO PADILLA Aspirin (Children's Aspirin) 81 Mg Tab.chew, 1 TAB PO DAILY for prophylaxis for 30 Days, #30 Ref 0 (Reported) Entered as Reported by: ANGELITO PADILLA on 08/27/204 Last Taken: Unknown Dose on 08/26/20 Last Action: Continued on 08/27/2051 by ANGELITO PADILLA Atorvastatin Calcium (Atorvastatin Calcium) 20 Mg Tablet, 20 MG PO DAILY, (Reported) Entered as Reported by: KYLIE JAMA on 02/17/18130 Last Action: Continued on 08/27/2051 by ANGELITO PADILLA Lansoprazole (Lansoprazole) 30 Mg Capsule.dr, 1 CAP PO DAILY for GERD, (Reported) Entered as Reported by: ANGELITO PADILLA on 08/27/2043 Last Taken: Unknown Dose on 08/26/20 Last Action: Converted on 08/27/2051 by ANGELITO PADILLA Losartan Potassium (Losartan Potassium) 100 Mg Tablet, MG PO DAILY, (Reported) Entered as Reported by: ROXY GONZALEZ on 11/29/1331 Last Action: Reviewed on 08/27/2042 by ANGELITO PADILLA Metoprolol Tartrate (Metoprolol Tartrate) 25 Mg Tablet, 12.5 PO BID for Arrythmias, (Reported) Entered as Reported by: ANGELITO PADILLA on 08/27/2042 Last Taken: Unknown Dose on 08/26/20 Last Action: Continued on 08/27/2051 by ANGELITO PADILLA Propafenone Hcl (Propafenone Hcl) 325 Mg Cap.er.12h, 1 CAP PO BID for A-fib, (Reported) Entered as Reported by: ANGELITO PADILLA on 08/27/2042 Last Taken: Unknown Dose on 08/26/20 Last Action: Converted on 08/27/2051 by ANGELITO PADILLA Scheduled PRN Diazepam (Diazepam) 10 Mg Tablet, 10 MG PO PRN TID PRN for seizures, (Reported) Entered as Reported by: ANGELITO PADILLA on 08/27/2049 Last Taken: Unknown Dose on 08/26/20 Last Action: Converted on 08/27/2051 by ANGELITO PADILLA Tramadol Hcl (Tramadol Hcl) 50 Mg Tablet, 50 MG PO Q6HRS PRN for PAIN for 30 Days, #120 Prescribed by: VALENTINA PACHECO on 04/12/18 0952 Last Action: Continued on 08/27/2051 by ANGELITO PADILLA Justicifation of Admission Dx: Justifications for Admission: Justification of Admission Dx: Yes (Chest pain) ADILENE RODRIGES MD Aug 27, 2020 15:23
--- NOTE | 2020-08-27 16:20 | NUR ---
Pt's pacemaker has been interrogated and results are in her chart. Copy has been given to her as well. Discharge instructions given to patient regarding follow up appointments. Education given over chest pain and safety. Pt verbalizes understanding.
== END 2020-08-27 16:10 | disposition home or self-care (01) ==
LOC: ER 19:41 → ED HOLD 21:00 → 2 SOUTH 23:38
PROVIDERS: ADMIT Internal Medicine; ATTEND Internal Medicine
DX: I24.9 Acute ischemic heart disease, unspecified (principal); I10 Essential (primary) hypertension; I25.10 Atherosclerotic heart disease of native coronary artery without angina pectoris; I48.0 Paroxysmal atrial fibrillation; E78.5 Hyperlipidemia, unspecified; K21.9 Gastro-esophageal reflux disease without esophagitis; J44.9 Chronic obstructive pulmonary disease, unspecified; K57.90 Diverticulosis of intestine, part unspecified, without perforation or abscess without bleeding; I49.5 Sick sinus syndrome; F17.210 Nicotine dependence, cigarettes, uncomplicated; M19.90 Unspecified osteoarthritis, unspecified site; N39.0 Urinary tract infection, site not specified; F41.9 Anxiety disorder, unspecified; M54.5 Low back pain; Z90.49 Acquired absence of other specified parts of digestive tract; Z95.0 Presence of cardiac pacemaker; Z90.710 Acquired absence of both cervix and uterus; Z79.82 Long term (current) use of aspirin; Z90.13 Acquired absence of bilateral breasts and nipples; Z85.3 Personal history of malignant neoplasm of breast
CPT/HCPCS: 36415; 71045; 80053; 80061; 81001; 82553; 83690; 83735; 83880; 84484; 85025; 85610; 85730; 87086; 93005; 96374; 99285; G0378; J3490; G0379

== ENCOUNTER 2021-03-28 20:32 | Emergency (ER) | payer OTHER, MEDICAID ==
[~2021-03-28] VITALS: Ht 162.6 cm; Wt 67.3 kg
[~2021-03-28 20:32] MED LIST changes: +ASPI81TA59 PO; -CIPR500T PO; +CIPR500T2 PO; +LANS30CA PO; +METO25TA4 PO; +PROP325C4 PO
[2021-03-28 21:31] LABS: BASO % 0 % (0-3); EOS % 0 % (0-3); HEMATOCRIT 39.2 % (36.0-47.0); HEMOGLOBIN 13.5 g/dL (12.0-15.5); LYMPH % 38 % (24-48); MEAN CORPUSCULAR HEMOGLOBIN 32 pg (25-35); MEAN CORPUSCULAR HGB CONC 35 g/dL (31-37); MEAN CORPUSCULAR VOLUME 92 fL (79-100); MONO # 0.5 x10^3/uL (0.0-1.1); MONO % 10 % (0-9); NEUT # 2.7 x10^3/uL (1.8-7.7); NEUT % 52 % (31-73); PLATELET COUNT 231 x10^3/uL (140-400); RED BLOOD COUNT 4.26 x10^6/uL (3.50-5.40); RED CELL DISTRIBUTION WIDTH 14.5 % (11.5-14.5); WHITE BLOOD COUNT 5.2 x10^3/uL (4.0-11.0)
[2021-03-28 21:40] LABS: CALCIUM 9.9 mg/dL (8.5-10.1); GFR 55.5; POTASSIUM 3.7 mmol/L (3.5-5.1)
[2021-03-28] MEDS ORDERED: fentaNYL PF VIAL 100 MCG/2 ML VIAL IVP ONE (22:00)
[2021-03-28 22:14] LABS: DIRECT BILIRUBIN 0.2 mg/dL (0.0-0.2); TOTAL BILIRUBIN 0.9 mg/dL (0.2-1.0); TOTAL PROTEIN 6.9 g/dL (6.4-8.2)
[2021-03-28] MEDS ORDERED: IOHEXOL 350 MG/ML 100 ML VIAL. IV ONE (22:15)
[2021-03-28] MEDS ORDERED: CONTRAST GIVEN. MC PRN (22:15)
[2021-03-28 22:41] VITALS: BP 136/62
--- NOTE | 2021-03-28 23:02 | RAD ---
Exam performed: One view chest. Indication: Reason: pain / Spl. Instructions: / History: Date of Service: 03/28/2021 9:50 PM Comparison: None available. Single AP upright portable view chest findings: Cardiomediastinal silhouette is within limits of normal. No acute infiltrates, effusion or pneumotho rax is detected. The bony structures are normal. Impression: No acute cardiopulmonary process is detected. End impression PQRS Compliance Statement: One or more of the following individualized dose reduction techniques were utilized for this examinat ion: 1. Automated exposure control 2. Adjustment of the mA and/or kV according to patient size 3. Use of iterative reconstruction technique CT angiogram of the chest, abdomen and pelvis:: CLINICAL INDICATION: Chest pain radiating into the neck and abdomen as well as upper abdomen Prior examination CT abdomen and pelvis without contrast from 01/11/2020 available for comparison. TECHNIQUE: Helical axial images were obtained from the chest, abdomen and pelvis during intravenous a dministration of 100 cc of Isovue-[id number] timed for maximum arterial opacification. Multiplanar 2D refor matted images were created and filmed at the independent imaging workstation.3D MIP images were obtai reno. FINDINGS: Vascular findings: There is mild ectasia of the ascending aorta which measures 8.4 x 3.3 cm in maximum AP and Examination of the level of pulmonary artery bifurcation. The aortic arch is normal in caliber demons trating mild atheromatous calcification. The descending thoracic aorta is normal in caliber. Normal t hree-vessel aortic arch is seen. The left vertebral artery origin is from the aorta. There is a pacem robel in place. The suprarenal abdominal aorta is patent. The celiac artery distribution is patent. The splenic artery is patent.The left gastric artery, comm on hepatic artery, gastroduodenal artery and proper hepatic artery appear patent. The superior mesenteric artery distribution appears patent. The inferior mesenteric artery is diminutive however patent Single main renal arteries are seen bilaterally without discrete evidence of stenosis. The abdominal aorta demonstrates mild scattered atheromatous calcification. Normal aortic bifurcation is seen. Bilateral common iliac arteries are normal in caliber with normal bifurcation. Bilateral external iliac arteries are normal to the level of groin. Nonvascular findings: Bilateral thyroid nodules. No mediastinal or hilar adenopathy is seen. Heart size is normal. Lungs ar e well-expanded and clear. No abnormal neck or axillary adenopathy seen. The liver, spleen, pancreas appear normal. Cholecystectomy. Both adrenal glands and bilateral kidneys are normal in size with symmetric excretion of contrast via both kidneys. Right renal cysts. The sma ll bowel loops are nondilated and unremarkable. Appendix is normal. Scattered colonic diverticulosis. The urinary bladder is decompressed. Hysterectomy. No adnexal masses seen. Vertebroplasty at L4 leve l. IMPRESSION: No definite evidence of aortic aneurysm or dissection seen. Mild ectasia of the ascending aorta is no meron No acute abnormality seen in the CT scan of the chest, abdomen or pelvis. Incidental findings as outlined above. Electronically signed by: Yaa Warner MD (03/28/2021 10:59 PM) [facility]
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
[2021-03-28] MEDS ORDERED: ESOM20CA PO (23:21)
--- NOTE | 2021-03-29 02:18 | EKG ---
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
== END 2021-03-28 23:42 | disposition home or self-care (01) ==
LOC: ER 20:32
DX: R07.89 Other chest pain (principal); M54.2 Cervicalgia; R10.84 Generalized abdominal pain; I48.91 Unspecified atrial fibrillation; K21.9 Gastro-esophageal reflux disease without esophagitis; E78.00 Pure hypercholesterolemia, unspecified; I10 Essential (primary) hypertension; I25.10 Atherosclerotic heart disease of native coronary artery without angina pectoris; F17.200 Nicotine dependence, unspecified, uncomplicated; Z90.49 Acquired absence of other specified parts of digestive tract; Z90.710 Acquired absence of both cervix and uterus; Z95.0 Presence of cardiac pacemaker; Z88.5 Allergy status to narcotic agent; Z88.6 Allergy status to analgesic agent; Z88.1 Allergy status to other antibiotic agents
CPT/HCPCS: 36415; 71045; 71275; 74174; 80048; 80076; 83690; 84484; 85025; 93005; 96374; 99285; J3010

== ENCOUNTER → 2021-05-23 | Outpatient (CLI) | payer OTHER, MEDICAID ==
[~2021-05-23] MED LIST changes: +ESOM20CA PO; -OMEP40CA45 PO; +OMEP40CA7 PO
--- NOTE | 2021-05-23 16:26 | RAD ---
MR#: [id number] Date of Study: 05/23/2021 Ordering Physician: HERNANDO HARDY, Referring Physician: HERNANDO HARDY, Tech: Inder Petersen MBA, RDMS, RVT, RDCS, RTR APPROVED REPORT Patient Location: OUT-PATIENT Laterality:Bilateral Indications Atherosclerosis of b/l carotid arteries Doppler Spectral Velocity Analysis Right Left pCCA 89/20 cm/spCCA 114/32 cm/s mCCA 91/23 cm/smCCA 107/31 cm/s dCCA 69/17 cm/sdCCA 91/33 cm/s Bulb 53/17 cm/sBulb 77/22 cm/s ECA 70/ cm/sECA 76/ cm/s pICA 60/19 cm/spICA 76/23 cm/s Connie 86/31 cm/smICA 101/39 cm/s dICA 115/44 cm/sdICA 98/41 cm/s Vert. 69/ cm/sVert. 57/ cm/s Subcl. 114/ cm/sSubcl. 87/ cm/s ICA/CCA 1.26ICA/CCA 0.89 Findings Grayscale images the bilateral carotid vessels demonstrates mild to moderate diffuse atherosclerosis. No focal high-grade stenosis identified. Spectral waveforms and velocities are grossly within normal limits. Overall 0 to less than 50% steno sis based on velocity criteria. Normal ICA to CCA ratios bilaterally. Normal antegrade vertebral velocities bilaterally. Normal bilateral subclavian velocities. Critical Notification Critical Value: No <Conclusion> 1. No significant extracranial carotid occlusive disease bilaterally. Signed by : Hernando Hardy, Electronically Approved : 05/23/2021 16:25:56
--- NOTE | 2021-05-24 19:00 | CARD ---
MR#: [id number] Date of Study: 05/23/2021 Ordering Physician: HERNANDO HARDY, Referring Physician: HERNANDO HARDY, Tech: Liam Sheridan RUST APPROVED REPORT EXAM: Two-dimensional and M-mode echocardiogram with Doppler and color Doppler. Other Information Quality : AverageHR: 70bpm Rhythm : NSR INDICATION Murmur Pacemaker Surgery/Intervention ICD/Pacemaker: RISK FACTORS Hypertension Hyperlipidemia Family History Smoking 2D DIMENSIONS Left Atrium(2D)3.5 (1.6-4.0cm)IVSd1.2 (0.7-1.1cm) Aortic Root(2D)3.0 (2.0-3.7cm)LVDd3.9 (3.9-5.9cm) LVOT Diameter1.8 (1.8-2.4cm)PWd1.2 (0.7-1.1cm) LVDs2.1 (2.5-4.0cm)FS (%) 46.3 % SV52.2 ml Aortic Valve AoV Peak Miguel.125.8cm/sAoV VTI23.0cm AO Peak GR.6.3mmHgLVOT Peak Miguel.94.7cm/s AO Mean GR.3mmHgAVA (VMAX)1.87cm2 Mitral Valve MV E Eenbssxb56.7cm/sMV E Peak Gr.3mmHg MV DECEL [id number] A Vqsfatlm00.3cm/s MV E Mean Gr.1mmHgE/A Ratio0.7 Pulmonary Valve PV Peak Inxgqifb51.9cm/s Tricuspid Valve TR P. Xsnauvhl109fz/sTR Peak Gr.25mmHg Pulmonary Vein S1 Pextskff73.8cm/sD2 Vzweybxe23.9cm/s LEFT VENTRICLE The left ventricle is normal size. There is mild concentric left ventricular hypertrophy. The left ve ntricular systolic function is normal. LV ejection fraction is 55 to 60%. There is normal LV segmenta l wall motion. Transmitral Doppler flow pattern is Grade I-abnormal relaxation pattern. No left ventr icle thrombus noted on this study. There is no ventricular septal defect visualized. There is no left ventricular aneurysm. There is no mass noted in the left ventricle. RIGHT VENTRICLE The right ventricle is normal size. There is normal right ventricular wall thickness. The right ventr icular systolic function is normal. Device lead noted in RV ATRIA The left atrium is mildly dilated. The right atrium size is normal. The interatrial septum is intact with no evidence for an atrial septal defect or patent foramen ovale as noted on 2-D or Doppler imagi ng. AORTIC VALVE The aortic valve is normal in structure and function. Doppler and Color Flow revealed no significant aortic regurgitation. There is no significant aortic valvular stenosis. There is no aortic valvular v egetation. MITRAL VALVE The mitral valve is mildly thickened but opens well. There is no evidence of mitral valve prolapse. T here is no mitral valve stenosis. Doppler and Color-flow revealed trace mitral regurgitation. TRICUSPID VALVE The tricuspid valve is normal in structure and function. Doppler and Color Flow revealed mild tricusp id regurgitation. There is no tricuspid valve prolapse or vegetation. There is no tricuspid valve harpreet nosis. PULMONIC VALVE The pulmonary valve is normal in structure and function. Doppler and Color Flow revealed no pulmonic valvular regurgitation. There is no pulmonic valvular stenosis. GREAT VESSELS The aortic root is normal in size. The ascending aorta is normal in size. The pulmonary artery is nor mal. The IVC is normal in size and collapses >50% with inspiration. PERICARDIAL EFFUSION There is no pleural effusion. There is no evidence of significant pericardial effusion. Critical Notification Critical Value: No <Conclusion> The left ventricle is normal size. The left ventricular systolic function is normal. LV ejection fraction is 55 to 60%. There is mild concentric left ventricular hypertrophy. Doppler and Color Flow revealed no significant aortic regurgitation. There is no significant aortic valvular stenosis. Doppler and Color-flow revealed trace mitral regurgitation. Doppler and Color Flow revealed mild tricuspid regurgitation. Signed by : Mike Calle MD Electronically Approved : 05/24/2021 18:59:51
== END ==
LOC: ECHO 12:37
PROVIDERS: ATTEND Internal Medicine Cardiovascular Disease
DX: I65.23 Occlusion and stenosis of bilateral carotid arteries (principal); I07.1 Rheumatic tricuspid insufficiency; Z95.0 Presence of cardiac pacemaker
CPT/HCPCS: 93306; 93880

== ENCOUNTER 2021-08-22 17:02 | Emergency (ER) | payer OTHER, MEDICAID | END 2021-08-22 19:21 | disposition left against medical advice (07) | LOC: ER 17:02 | DX: R09.89 Other specified symptoms and signs involving the circulatory and respiratory systems (principal); Z53.21 Procedure and treatment not carried out due to patient leaving prior to being seen by health care provider ==

== ENCOUNTER 2021-08-22 21:58 | Emergency (ER) | payer OTHER, MEDICAID ==
[~2021-08-22] VITALS: Ht 162.6 cm; Wt 66.0 kg
[2021-08-22 23:48] VITALS: BP 140/68
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
== END 2021-08-23 00:35 | disposition left against medical advice (07) ==
LOC: ER 21:58
DX: R10.13 Epigastric pain (principal); I48.91 Unspecified atrial fibrillation; I25.10 Atherosclerotic heart disease of native coronary artery without angina pectoris; K21.9 Gastro-esophageal reflux disease without esophagitis; E78.00 Pure hypercholesterolemia, unspecified; I10 Essential (primary) hypertension; F17.200 Nicotine dependence, unspecified, uncomplicated; Z90.710 Acquired absence of both cervix and uterus; Z90.49 Acquired absence of other specified parts of digestive tract; Z95.0 Presence of cardiac pacemaker; Z88.1 Allergy status to other antibiotic agents; Z88.5 Allergy status to narcotic agent; Z88.6 Allergy status to analgesic agent; Z88.8 Allergy status to other drugs, medicaments and biological substances
CPT/HCPCS: 99281

== ENCOUNTER 2021-12-06 13:03 | Emergency (ER) | payer OTHER, MEDICAID ==
[~2021-12-06] VITALS: Ht 162.6 cm; Wt 63.6 kg
[2021-12-06] MEDS ORDERED: ASPIRIN CHEWABLE 81 MG TABLET. PO ONE (13:30)
[2021-12-06] MEDS ORDERED: KETOROLAC 15 MG/ML VIAL. IVP ONE (14:00)
[2021-12-06 14:05] LABS: BASO % 1 % (0-3); EOS % 0 % (0-3); HEMATOCRIT 37.9 % (36.0-47.0); LYMPH # 1.7 x10^3/uL (1.0-4.8); LYMPH % 25 % (24-48); MEAN CORPUSCULAR HEMOGLOBIN 32 pg (25-35); MEAN CORPUSCULAR HGB CONC 34 g/dL (31-37); MEAN CORPUSCULAR VOLUME 92 fL (79-100); MONO # 0.6 x10^3/uL (0.0-1.1); MONO % 8 % (0-9); NEUT # 4.5 x10^3/uL (1.8-7.7); NEUT % 66 % (31-73); PLATELET COUNT 246 x10^3/uL (140-400); RED BLOOD COUNT 4.11 x10^6/uL (3.50-5.40); RED CELL DISTRIBUTION WIDTH 14.2 % (11.5-14.5); WHITE BLOOD COUNT 6.9 x10^3/uL (4.0-11.0)
--- NOTE | 2021-12-06 14:09 | RAD ---
EXAM: Chest, single view. HISTORY: Chest pain. COMPARISON: 03/28/2021 FINDINGS: A frontal view of the chest is obtained. There is no infiltrate, pleural effusion or pneumo thorax. The heart is normal in size. There is evidence of prior median sternotomy. There are implante d breast prostheses. IMPRESSION: No acute pulmonary finding. Electronically signed by: Agnes Baeza MD (12/06/2021 2:07 PM) [id number]
[2021-12-06 14:18] LABS: CALCIUM 9.7 mg/dL (8.5-10.1); CREATININE 0.8 mg/dL (0.6-1.0); GFR 71.8; POTASSIUM 4.5 mmol/L (3.5-5.1)
[2021-12-06 14:24] LABS: ALBUMIN 3.4 g/dL (3.4-5.0); ALBUMIN/GLOBULIN RATIO 0.8 (1.0-1.7); MAGNESIUM 1.9 mg/dL (1.8-2.4); TOTAL BILIRUBIN 1.1 mg/dL (0.2-1.0); TOTAL PROTEIN 7.5 g/dL (6.4-8.2)
[2021-12-06] MEDS ORDERED: ONDANSETRON PF 4 MG/2 ML VIAL. IVP ONE (15:30)
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
[2021-12-06 17:03] VITALS: BP 134/57
--- NOTE | 2021-12-06 20:56 | PDOC2 ---
CARDIOLOGY CONSULT NOTE DATE OF SERVICE: DATE: 12/06/21 TIME: 20:49 CHIEF COMPLAINT: Chest discomfort HPI: Pleasant 66-year-old woman who is well-known to our service comes into the ER today for epigastric discomfort. She denies any anginal chest discomfort or associated dyspnea, orthopnea, PND. She does not have any significant syncope or palpitations. She does not have any nausea or vomiting. She reports discomfort at the site of her recent sternotomy at the subxiphoid process. She does not have any pleuritic chest pain. No other acute issues. She was actually recently seen in the office and was otherwise without any significant issues. Of note the patient was seen at [facility] several weeks ago and was undergoing a lead extraction which was complicated by SVC perforation and required emergency sternotomy and repair of this. She had some cognitive impairment but ultimately was discharged from the hospital in stable condition. Today she denies any other new issues. She is actually feeling better after being in the ER for a few hours and is eager to go home to see her dogs. PMHX: 1. Recent pacemaker lead extraction with complication of SVC perforation treated via sternotomy and repair. 2. Hypertension 3. Dyslipidemia 4. Prior history of pacemaker as noted above SOCHX: No alcohol, tobacco or illicit drug use. She lives at home alone FAMHX: Noncontributory CURRENT MEDS: Current Medications Medications (Trade) Dose Ordered Sig/Jose Route PRN Reason Start Time Stop Time Status Last Admin Dose Admin Aspirin (Aspirin Chewable) 324 mg 1X ONCE PO 12/06/21 13:30 12/06/21 13:31 DC 12/06/21 14:03 Ketorolac Tromethamine (Toradol 15mg Vial) 15 mg 1X ONCE IVP 12/06/21 14:00 12/06/21 14:01 DC 12/06/21 14:14 Ondansetron HCl (Zofran) 4 mg 1X ONCE IVP 12/06/21 15:30 12/06/21 15:31 DC 12/06/21 15:51 ALLERGIES: Allergies Coded Allergies Type Severity Reaction Last Updated Verified codeine Allergy Intermediate 03/28/21 Yes meperidine HCl Adverse Reaction Intermediate agitation/hyperactivity 12/06/21 Yes morphine Adverse Reaction Intermediate agitation/hyperactive 12/06/21 Yes ROS: Negative for 10 out of 14 systems reviewed unless otherwise mentioned above in HPI PHYSICAL EXAM: Vital Signs/I&O: Vital Signs Date Time Temp Pulse Resp B/P (MAP) Pulse Ox O2 Delivery O2 Flow Rate FiO2 12/06/21 17:03 70 25 134/57 (82) 96 Room Air 12/06/21 13:27 97.6 97.6 Physical Exam: The patient appeared well nourished and normally developed. Head exam is unremarkable. No scleral icterus or corneal arcus noted. Neck is without jugular venous distension, thyromegaly, or carotid bruits. Carotid upstrokes are brisk bilaterally. Lungs are clear to auscultation and percussion. Cardiac exam reveals the PMI to be normally sized and situated. Rhythm is regular. First and second heart sounds normal. No murmurs, rubs or gallops. Abdominal exam reveals normal bowel sounds, no masses, no organomegaly and no aortic enlargement. Extremities are nonedematous and both femoral and pedal pulses are normal. Msk: No traumua Neuro: No focal deficits DIAGNOSTIC TESTING: Diagnostic studies reviewed including EKG. This was compared to previous EKG at [facility] and there are no significant changes Cardiac enzymes are negative x2 Chest x-ray is unremarkable. ASSESSMENT: 1. Noncardiac chest pain 2. History of recent pacemaker extraction with complication of SVC perforation. 3. Hypertension 4. Dyslipidemia 5. 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 PLAN: 1. At this present time the patient has noncardiac chest pain, negative biomarkers and a unchanged EKG from prior with a normal coronary angiogram approximately 3 years ago. No further inpatient cardiac testing necessary at this time. She will follow-up in the office and we will determine any further testing as needed depending on her symptoms. HERNANDO HARDY MD Dec 06, 2021 20:56
--- NOTE | 2021-12-07 07:17 | EKG ---
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
== END 2021-12-06 17:50 | disposition home or self-care (01) ==
LOC: ER 13:03
DX: R07.2 Precordial pain (principal); I48.91 Unspecified atrial fibrillation; K21.9 Gastro-esophageal reflux disease without esophagitis; E78.00 Pure hypercholesterolemia, unspecified; I25.10 Atherosclerotic heart disease of native coronary artery without angina pectoris; I10 Essential (primary) hypertension; Z87.891 Personal history of nicotine dependence; Z90.710 Acquired absence of both cervix and uterus; Z90.49 Acquired absence of other specified parts of digestive tract; Z95.0 Presence of cardiac pacemaker; Z88.5 Allergy status to narcotic agent; Z88.1 Allergy status to other antibiotic agents
CPT/HCPCS: 36415; 71045; 80053; 83690; 83735; 83880; 84484; 85025; 93005; 96374; 96375; 99285; J1885; J2405

== ENCOUNTER → 2021-12-13 | Outpatient (CLI) | payer OTHER, MEDICAID ==
[2021-12-06 17:03] VITALS: BP 134/57
[2021-12-13 15:40] LABS: BASO % 0 % (0-3); EOS # 0.1 x10^3/uL (0.0-0.7); EOS % 1 % (0-3); HEMATOCRIT 37.3 % (36.0-47.0); HEMOGLOBIN 12.5 g/dL (12.0-15.5); LYMPH # 1.7 x10^3/uL (1.0-4.8); LYMPH % 29 % (24-48); MEAN CORPUSCULAR HEMOGLOBIN 31 pg (25-35); MEAN CORPUSCULAR HGB CONC 33 g/dL (31-37); MEAN CORPUSCULAR VOLUME 92 fL (79-100); MONO # 0.4 x10^3/uL (0.0-1.1); MONO % 8 % (0-9); NEUT # 3.6 x10^3/uL (1.8-7.7); NEUT % 62 % (31-73); PLATELET COUNT 228 x10^3/uL (140-400); RED BLOOD COUNT 4.05 x10^6/uL (3.50-5.40); RED CELL DISTRIBUTION WIDTH 13.9 % (11.5-14.5); WHITE BLOOD COUNT 5.9 x10^3/uL (4.0-11.0)
[2021-12-13 16:13] LABS: ALBUMIN 3.3 g/dL (3.4-5.0); ALBUMIN/GLOBULIN RATIO 0.8 (1.0-1.7); CALCIUM 9.5 mg/dL (8.5-10.1); CREATININE 0.8 mg/dL (0.6-1.0); GFR 71.8; POTASSIUM 4.1 mmol/L (3.5-5.1); TOTAL BILIRUBIN 0.9 mg/dL (0.2-1.0); TOTAL PROTEIN 7.4 g/dL (6.4-8.2)
--- NOTE | 2021-12-13 20:25 | CARD ---
MR#: [id number] Date of Study: 12/13/2021 Ordering Physician: HERNANDO HARDY, Referring Physician: HERNANDO HARDY, Tech: Liam Sheridan [facility] APPROVED REPORT EXAM: Two-dimensional and M-mode echocardiogram with Doppler and color Doppler. Other Information Quality : FairHR: 69bpm Rhythm : NSR INDICATION Hypertension/HCVD RISK FACTORS Hypertension 2D DIMENSIONS Left Atrium(2D)3.4 (1.6-4.0cm)IVSd1.2 (0.7-1.1cm) Aortic Root(2D)2.8 (2.0-3.7cm)LVDd4.6 (3.9-5.9cm) LVOT Diameter1.9 (1.8-2.4cm)PWd1.2 (0.7-1.1cm) LVDs2.5 (2.5-4.0cm)FS (%) 45.4 % SV76.4 mlLVEF(%)76.8 (>50%) Aortic Valve AoV Peak Miguel.127.1cm/sAoV VTI30.0cm AO Peak GR.6.5mmHgLVOT Peak Miguel.98.8cm/s LVOT VTI 20.89cmAO Mean GR.4mmHg OSITO (VMAX)1.39ci0BXB (VTI)2.00cm2 Mitral Valve MV E Nmzyqprc59.1cm/sMV DECEL UWKM912gn MV A Hprqomit733.0cm/sMV FWM46cr E/A Ratio0.8MVA (PHT)4.62cm2 TDI E/Lateral E'10.7E/Medial E'13.6 Pulmonary Valve PV Peak Hsmpjuxh45.6cm/sPV Peak Grad.3mmHg Tricuspid Valve TR P. Nmydkrqb524ks/sTR Peak Gr.22mmHg Pulmonary Vein S1 Keckefrq03.8cm/sD2 Ohbdvegp85.9cm/s LEFT VENTRICLE The left ventricle is normal size. There is borderline concentric left ventricular hypertrophy. The s ystolic function is moderately impaired. The Ejection Fraction is 35-40%. The distal half of the LV i s severely hypokinetic. Transmitral Doppler flow pattern is Grade I-abnormal relaxation pattern. No l eft ventricle thrombus noted on this study. There is no left ventricular aneurysm. There is no mass n oted in the left ventricle. RIGHT VENTRICLE The right ventricle is normal size. There is normal right ventricular wall thickness. The right ventr icular systolic function is normal. ATRIA The left atrium is mildly dilated. The right atrium size is normal. The interatrial septum is intact with no evidence for an atrial septal defect or patent foramen ovale as noted on 2-D or Doppler imagi ng. AORTIC VALVE The aortic valve is not well visualized. Doppler and Color Flow revealed no significant aortic regurg itation. There is no significant aortic valvular stenosis. There is no aortic valvular vegetation. MITRAL VALVE The mitral valve is normal in structure and function. There is no evidence of mitral valve prolapse. There is no mitral valve stenosis. Doppler and Color Flow revealed no mitral valve regurgitation note d. TRICUSPID VALVE The tricuspid valve is normal in structure and function. Doppler and Color Flow revealed trace to mil d tricuspid regurgitation. There is no tricuspid valve prolapse or vegetation. There is no tricuspid valve stenosis. PULMONIC VALVE Doppler and Color Flow revealed no pulmonic valvular regurgitation. There is no pulmonic valvular harpreet nosis. GREAT VESSELS The aortic root is normal in size. The ascending aorta is normal in size. The IVC is normal in size a nd collapses >50% with inspiration. PERICARDIAL EFFUSION There is no pleural effusion. There is no evidence of significant pericardial effusion. Critical Notification Critical Value: No <Conclusion> The systolic function is moderately impaired. The Ejection Fraction is 35-40%. The distal half of the LV is severely hypokinetic. Signed by : Hernando Hardy, Electronically Approved : 12/13/2021 20:24:59
== END ==
LOC: ECHO 14:16
PROVIDERS: ATTEND Internal Medicine Cardiovascular Disease
DX: I07.1 Rheumatic tricuspid insufficiency (principal); I10 Essential (primary) hypertension
CPT/HCPCS: 36415; 80053; 83880; 85025; 93306; C8929

== ENCOUNTER → 2022-01-11 | Outpatient (CLI) | payer OTHER ==
[~2022-01-11] MED LIST changes: +REGADENOSON 0.4 MG/5 ML DISP.SYRIN. IV ONE
--- NOTE | 2022-01-11 17:48 | RAD ---
MR#: [id number] Date of Study: 01/11/2022 Ordering Physician: HERNANDO HARDY, Referring Physician: JOSE GARCIA Tech: RT Stephen (Adrian) (N) APPROVED REPORT Test Type: Pharmacological Stress Nurse/Tech: Kellie Rainey R.N. Test Indications: cardiomyopathy Cardiac History: pacemaker, htn Medications: see ehr Medical History: see ehr Resting ECG: sr see printout Resting Heart Rate: 69 bpm Resting Blood Pressure: 161/75mmHg Pretest Chest Pain: No chest pain Nurse/Tech Notes lungs cta, heart tones regular Consent: The procedure was explained to the patient in lay terms. Informed consent was witnessed. Ricky eout was entered into [employer]. History and Stress Test performed by [facility] [employer]. Details Pharmacologic stress testing was performed using 0.4mg per 5ml of regadenoson given intravenously ove r 7-10 seconds. Stress Symptoms No chest pain or symptoms. pt stated she had some upper abd pain, 4/10 POST EXERCISE Reason for Termination: Infusion complete Target HR: No Max HR: 115 bpm Max Blood Pressure: 174/91mmHg Chest Pain: No. Arrhythmia: Yes. unifocal PVC noted ST Change: No. INTERPRETATION Stress EKG Conclusion: Baseline EKG showed sinus rhythm with old anteroseptal infarct. Nondiagnostic changes at peak stress. Few PVCs without any significant arrhythmias noted. Imaging Protocol IMAGE PROTOCOL: Rest Tc-99m/stress Tc-99m 1 day Rest: Stress: Viability: Radiopharm.Tc99m FxbplgfkeGe45a Sestamibi Dose10.5mCi 33mCi Duration 13min. 13min. Img Date 01/11/2022 01/11/2022 Inj-Img Gewe23cyd. 60min. Rest Admin Site:IV - Right ForearmAdministrator:TEJAL Lockett Stress Admin Site: IV - Right ForearmAdministrator: TEJAL Lockett STRESS DATA End Diast. Vol.130.0mlLVEDV index BSA82.0ml End Syst. Vol.79.0mlLVESV index BSA50.0ml Myocardial Tqao489.0gEject. Ndmreqeo14.0% Stress Scores Regional WT2.00Summed WT20.00 Regional WM1.00Summed WM23.00 LV Perfusion Scintigraphic images showed a large fixed defect involving the mid to distal anterior and anterolater al valle and the entire apical wall consistent with prior myocardial infarction without any reversibi lity. Wall Motion Akinetic apical wall with ejection fraction calculated at 37%. LV Perf. Quant 17 Seg. SSS22.00 17 Seg. SRS18.00 17 Seg. SDS4.00 Stress Defect Extent (% LAD)66.30Rest Defect Extent (% LAD)65.60Rev. Defect Extent (% LAD)1.90 Stress Defect Extent (% LCX) 46.30Rest Defect Extent (% LCX)42.50Rev. Defect Extent (% LCX)0.00 Stress Defect Extent (% RCA)0.00Rest Defect Extent (% RCA)0.00Rev. Defect Extent (% RCA)0.00 Stress Defect Extent (% WENDIE)46.10Rest Defect Extent (% WENDIE)44.80Rev. Defect Extent (% WENDIE)1.10 Conclusion 1. Regadenoson cardioisotope stress test showed large infarct involving the mid to distal anterior an d anterolateral valle and the entire apical wall without any ischemia. 2. Akinetic apical wall with ejection fraction calculated at 37%. 3. Intermediate risk for cardiac events based on diminished LV systolic function. Signed by : Quincy Rodriguez, Electronically Approved : 01/11/2022 17:48:18
--- NOTE | 2022-01-12 08:12 | RAD ---
MR#: [id number] Date of Study: 01/11/2022 Ordering Physician: HERNANDO HARDY, Referring Physician: HERNANDO HARDY, Tech: Inder Petersen MBA, RDMS, RVT, RDCS, RTR APPROVED REPORT Patient Location: OUT-PATIENT Laterality:Bilateral Indications CVA/TIA: Doppler Spectral Velocity Analysis Right Left pCCA 110/11 cm/spCCA 88/21 cm/s mCCA 85/17 cm/smCCA 83/20 cm/s dCCA 81/21 cm/sdCCA 91/26 cm/s Bulb 42/13 cm/sBulb 67/23 cm/s ECA 90/ cm/sECA 82/ cm/s pICA 41/14 cm/spICA 92/26 cm/s Connie 74/24 cm/smICA 109/38 cm/s dICA 50/14 cm/sdICA 90/33 cm/s Vert. 66/ cm/sVert. 75/ cm/s Subcl. 99/ cm/sSubcl. 115/ cm/s ICA/CCA 0.67ICA/CCA 1.24 Findings Grayscale images of extracranial carotid arteries bilaterally showed mild to moderate atherosclerosis in the carotid bulbs. Spectral waveform and color duplex analysis showed normal velocities without any significant stenosis. The ICA to CCA ratios were within normal limits bilaterally. The vertebra l arteries bilaterally showed antegrade flow with normal velocities. Critical Notification Critical Value: No <Conclusion> Carotid arterial duplex scan did not show any significant carotid artery stenosis. Signed by : Quincy Rodriguez, Electronically Approved : 01/12/2022 08:11:58
== END ==
LOC: NM 08:23
PROVIDERS: ATTEND Internal Medicine Cardiovascular Disease
DX: I65.23 Occlusion and stenosis of bilateral carotid arteries (principal); I21.9 Acute myocardial infarction, unspecified; I42.9 Cardiomyopathy, unspecified
CPT/HCPCS: 78452; 93017; 93880; A9500; J2785

== ENCOUNTER → 2022-02-03 | Outpatient (CLI) | payer OTHER, MEDICAID ==
[~2022-02-03] MED LIST changes: -REGADENOSON 0.4 MG/5 ML DISP.SYRIN. IV ONE
--- NOTE | 2022-02-03 16:56 | RAD ---
EXAMINATION: XR LUMBAR SPINE 2-3V, XR SACROILIAC JOINTS 3+ VIEWS CLINICAL HISTORY: Low back pain. TECHNIQUE: XR LUMBAR SPINE 2-3V, XR SACROILIAC JOINTS 3+ VIEWS Number of Images/Views: 2 L-spine, 3 SI joints COMPARISON: None FINDINGS: Normal anatomic alignment of the lumbar spine. Remote L4 compression fracture status post kyphoplasty . No evidence of acute fracture or spondylolisthesis. Mild disc space narrowing at L4-5. Multilevel f acet arthropathy, greatest in the lower lumbar spine. Moderate degenerative changes bilateral SI joints. Vascular calcifications. Right lower quadrant surgical clips. IMPRESSION: Mild degenerative disc disease at L4-5. Multilevel lumbar facet arthropathy, greatest in the lower nara mbar spine. Moderate degenerative changes bilateral SI joints. Electronically signed by: Triston Terrell DO (02/03/2022 4:54 PM) [id number]
== END ==
LOC: RAD 15:13
PROVIDERS: ATTEND Internal Medicine Cardiovascular Disease
DX: M51.36 Other intervertebral disc degeneration, lumbar region (principal); M48.8X6 Other specified spondylopathies, lumbar region; M46.1 Sacroiliitis, not elsewhere classified; M48.061 Spinal stenosis, lumbar region without neurogenic claudication; Z98.890 Other specified postprocedural states
CPT/HCPCS: 72100; 72202

== ENCOUNTER 2022-02-08 16:24 | Emergency (ER) | payer OTHER, MEDICAID ==
[~2022-02-08] VITALS: Ht 160 cm; Wt 63.5 kg
[2022-02-08] MEDS ORDERED: fentaNYL PF VIAL 100 MCG/2 ML VIAL IVP ONE (17:15)
[2022-02-08] MEDS ORDERED: ONDANSETRON PF 4 MG/2 ML VIAL. IVP ONE (17:15)
[2022-02-08 18:07] LABS: BASO % 1 % (0-3); EOS % 0 % (0-3); HEMATOCRIT 40.2 % (36.0-47.0); HEMOGLOBIN 13.2 g/dL (12.0-15.5); LYMPH # 1.1 x10^3/uL (1.0-4.8); LYMPH % 11 % (24-48); MEAN CORPUSCULAR HEMOGLOBIN 30 pg (25-35); MEAN CORPUSCULAR HGB CONC 33 g/dL (31-37); MEAN CORPUSCULAR VOLUME 90 fL (79-100); MONO # 0.4 x10^3/uL (0.0-1.1); MONO % 4 % (0-9); NEUT # 8.1 x10^3/uL (1.8-7.7); NEUT % 84 % (31-73); PLATELET COUNT 245 x10^3/uL (140-400); RED BLOOD COUNT 4.45 x10^6/uL (3.50-5.40); RED CELL DISTRIBUTION WIDTH 13.9 % (11.5-14.5); WHITE BLOOD COUNT 9.7 x10^3/uL (4.0-11.0)
[2022-02-08 18:26] LABS: CALCIUM 10.4 mg/dL (8.5-10.1); CREATININE 0.8 mg/dL (0.6-1.0); GFR 71.5; POTASSIUM 3.5 mmol/L (3.5-5.1)
[2022-02-08 18:32] LABS: ALBUMIN 3.9 g/dL (3.4-5.0); ALBUMIN/GLOBULIN RATIO 1.1 (1.0-1.7); TOTAL BILIRUBIN 1.1 mg/dL (0.2-1.0); TOTAL PROTEIN 7.5 g/dL (6.4-8.2)
[2022-02-08] MEDS ORDERED: IOHEXOL 300 MG/ML 100ML VIAL. ONE (18:55)
[2022-02-08] MEDS ORDERED: IOHEXOL 300 MG/ML 100ML VIAL. IV ONE (19:00)
[2022-02-08] MEDS ORDERED: CONTRAST GIVEN. MC PRN (19:00)
[2022-02-08 19:09] LABS: BACTERIA,URINE 0 /HPF (0-FEW); RBC,URINE 0 /HPF (0-2); WBC,URINE OCC /HPF (0-4)
[2022-02-08 19:12] LABS: BARBITURATES NEG (NEG); BENZODIAZEPINES POS (NEG); CANNABINOIDS NEG (NEG); COCAINE NEG (NEG); METHADONE NEG (NEG); OPIATES NEG (NEG); PHENCYCLIDINE NEG (NEG)
[2022-02-08 19:18] LABS: AMPHETAMINE/METHAMPHETAMINE NEG (NEG)
--- NOTE | 2022-02-08 19:51 | RAD ---
CT abdomen pelvis with contrast. HISTORY: Right lower quadrant pain CT abdomen pelvis was done using 75mL Omnipaque 300 contrast. There is mild atelectasis in the lung b ases without other infiltrates. Liver is unremarkable. Patient's had a cholecystectomy. Spleen is nor mal. Adrenal glands are normal. There is no focal pancreatic lesion. There are cysts in the right kid nemo. There is no renal mass or hydronephrosis. A ureteral calculus is not identified. Appendix is nor mal. There is atherosclerotic change in the aorta without an aneurysm. There is an old fracture of L4 . There is no bowel obstruction or ascites. There is extensive diverticulosis of the colon. There is not an acute diverticulitis. Patient's had a hysterectomy. There is chronic inspissated density in th e colon diverticula similar to the old study. There is a fracture at T12 which is new compared to the old study. IMPRESSION: 1. Previous cholecystectomy. 2. Normal appendix. 3. No renal or ureteral calculus. 4. Extensive diverticulosis of the colon without an acute diverticulitis. 5. Previous hysterectomy. 6. Inspissated dense material in colon diverticula similar to an old study. 7. Old L4 fracture with a fracture of T12 new compared to 2020. PQRS Compliance Statement: One or more of the following individualized dose reduction techniques were utilized for this examinat ion: 1. Automated exposure control 2. Adjustment of the mA and/or kV according to patient size 3. Use of iterative reconstruction technique Electronically signed by: Jim Gordlilo MD (02/08/2022 7:49 PM) [facility]
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
[2022-02-08 20:44] VITALS: BP 132/61
== END 2022-02-08 20:51 | disposition home or self-care (01) ==
LOC: ER 16:24
DX: S22.089A Unspecified fracture of T11-T12 vertebra, initial encounter for closed fracture (principal); I48.91 Unspecified atrial fibrillation; I25.10 Atherosclerotic heart disease of native coronary artery without angina pectoris; K21.9 Gastro-esophageal reflux disease without esophagitis; E78.00 Pure hypercholesterolemia, unspecified; I10 Essential (primary) hypertension; Z88.1 Allergy status to other antibiotic agents; Z88.5 Allergy status to narcotic agent; X58.XXXA Exposure to other specified factors, initial encounter; Y93.89 Activity, other specified; Y92.89 Other specified places as the place of occurrence of the external cause; Y99.8 Other external cause status
CPT/HCPCS: 36415; 74177; 80053; 80307; 81001; 83690; 85025; 96374; 96375; 99285; G0480; J2405; J3010; Q9967

== ENCOUNTER → 2022-03-13 | Emergency (ER) | payer OTHER, MEDICAID ==
[~2022-03-13] VITALS: Ht 162.6 cm; Wt 61.6 kg
[~2022-03-13] MED LIST changes: +diphenhydrAMINE HCL 25 MG CAPSULE PO ONE; +oxyCODONE/APAP 5/325 1 TAB TABLET PO ONE
[2022-03-13 21:30] VITALS: BP 132/85
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
--- NOTE | 2022-03-14 07:48 | RAD ---
3 view right wrist History pain status post fall AP lateral oblique view The visualized osseous structures appear normal. IMPRESSION: No acute findings. Electronically signed by: Liam Rios III, MD (03/13/2022 10:34 PM) [facility]
--- NOTE | 2022-03-16 16:13 | EKG ---
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
== END | disposition home or self-care (01) ==
LOC: ER 20:37
DX: S63.502A Unspecified sprain of left wrist, initial encounter (principal); I48.91 Unspecified atrial fibrillation; I25.10 Atherosclerotic heart disease of native coronary artery without angina pectoris; K21.9 Gastro-esophageal reflux disease without esophagitis; E78.00 Pure hypercholesterolemia, unspecified; I10 Essential (primary) hypertension; Z95.1 Presence of aortocoronary bypass graft; Z88.1 Allergy status to other antibiotic agents; Z88.5 Allergy status to narcotic agent; W01.0XXA Fall on same level from slipping, tripping and stumbling without subsequent striking against object, initial encounter; Y93.89 Activity, other specified; Y92.89 Other specified places as the place of occurrence of the external cause; Y99.8 Other external cause status
CPT/HCPCS: 29125; 73110; 93005; 99283; Q0163